=== PATIENT | female | born 1930 | race African-American/Black ===

== ENCOUNTER 2017-07-20 15:30 | Inpatient (IN) | payer OTHER, MEDICARE ==
[~2017-07-20] VITALS: Ht 149.9 cm; Wt 71.6 kg
--- NOTE | 2017-07-20 15:43 | ED CARDIAC/CP/PALPITATIONS ---
History of Present Illness General Chief Complaint: General Adult Stated Complaint: SIB DR ROY FOR FAST HEART RATE Source: patient Exam Limitations: no limitations Vital Signs & Intake/Output Vital Signs & Intake/Output Vital Signs Date Time Temp Pulse Resp B/P B/P Pulse O2 O2 Flow FiO2 Mean Ox Delivery Rate 07/20 1752 160/72 07/20 1751 160/72 07/20 1739 121 167/96 07/20 1739 121 167/96 07/20 1739 121 167/96 07/20 1713 130 167/96 07/20 1711 98.7 109 15 167/96 98 Room Air Room Air 07/20 1555 Room Air Room Air 07/20 1539 130 18 140/100 98 Room Air Allergies Coded Allergies: No Known Allergies (07/20/17) Reconcile Medications Amiloride/Hydrochlorothiazide (Amiloride HCl-Hctz 5-50 MG Tab) 5 MG-50 MG TABLET 1 TAB PO DAILY BLOOD PRESSURE (Reported) Amlodipine Besylate (Norvasc) 5 MG TABLET 1 TAB PO BID HTN (Reported) Benazepril HCl 5 MG TABLET 2 TAB PO DAILY HTN (Reported) Labetalol HCl 200 MG TABLET 1 TAB PO BID HEART HEALTH (Reported) Linagliptin (Tradjenta) 5 MG TABLET 1 TAB PO DAILY DIABETES (Reported) Potassium Chloride 10 MEQ CAPSULE.ER 1 CAP PO DAILY SUPPLEMENT (Reported) Pravastatin Sodium 20 MG TABLET 1 TAB PO DAILY CHOLESTEROL (Reported) Triage Nurses Notes Reviewed? yes Onset: Abrupt Duration: unknown duration Timing: recent history Activities at Onset: none HPI: 87-year-old female comes into the emergency room sent in by her primary care doctor for rapid A. fib. Patient was seen her primary care for a normal routine checkup. She denies any chest pain shortness of breath lightheaded dizziness. Denies any weakness or fatigue. No prior history of this. (Chad Randolph) Past History Travel History Traveled to [place] past 21 day No Medical History Any Pertinent Medical History? see below for history Neurological: NONE EENT: NONE Cardiovascular: hypertension Musculoskeletal: ARTHITIS Endocrine: diabetes Surgical History Surgical History: non-contributory Psychosocial History What is your primary language Afghan Tobacco Use: Never used Family History Hx Contributory? No (Chad Randolph) Review of Systems Review of Systems Constitutional: Reports: no symptoms. EENTM: Reports: no symptoms. Respiratory: Reports: no symptoms. Cardiovascular: Reports: see HPI. GI: Reports: no symptoms. Genitourinary: Reports: no symptoms. Musculoskeletal: Reports: no symptoms. Skin: Reports: no symptoms. Neurological/Psychological: Reports: no symptoms. Hematologic/Endocrine: Reports: no symptoms. Immunologic/Allergic: Reports: no symptoms. All Other Systems: Reviewed and Negative (Chad Randolph) Physical Exam Physical Exam General Appearance: well developed/nourished, alert, awake Head: atraumatic Eyes: Bilateral: normal appearance. Ears, Nose, Throat: normal ENT inspection, hearing grossly normal Neck: normal inspection Respiratory: normal breath sounds, no respiratory distress Cardiovascular: tachycardia, irregularly irregular Extremities: normal inspection, no edema Neurologic/Psych: awake, alert, oriented x 3 Skin: intact, normal color Core Measures ACS in differential dx? Yes CVA/TIA Diagnosis No Sepsis Present: No Sepsis Focused Exam Completed? No (Chad Randolph) Progress Differential Diagnosis: AMI, aortic dissection, atrial fibrillation, V-fib/V- Tach, WPW syndrome Plan of Care: Orders Procedure Date/time Status Regular Diet 07/20 D Active Patient Data 07/20 1808 Active OXYGEN SETUP (GEN) 07/20 1806 Active Saline Lock 07/20 1806 Active Admit to inpatient 07/20 1806 Active Vital Signs 07/20 1806 Active Activity/Ambulation 07/20 1806 Active Code Status 07/20 1806 Active Telemetry/Account Support Associate 07/20 1542 Active THYROID STIMULATING HORMONE 07/20 1542 Complete TROPONIN LEVEL 07/20 1542 Complete PARTIAL THROMBOPLASTIN TIME 07/20 1542 Complete PROTHROMBIN TIME 07/20 1542 Complete COMPREHENSIVE METABOLIC PANEL 07/20 1542 Complete CBC WITHOUT DIFFERENTIAL 07/20 1542 Complete EKG 07/20 1534 Active Current Medications Sig/Concepción Start time Last Medication Dose Stop Time Status Admin Diltiazem HCl 125 MG Q24H 07/20 1800 UNVr (Cardizem DRIP) Sodium Chloride 100 ML (Normal Saline 0.9%) Heparin Sodium 25,000 UNIT Q24H 07/20 1645 UNVr 07/20 (Porcine) 1713 (Heparin) Sodium Chloride 500 ML Laboratory Tests 07/20/17 1649: Anion Gap 17 H, Estimated GFR 52 L, BUN/Creatinine Ratio 19.0, Glucose 379 H, Calcium 10.0, Total Bilirubin 0.6, AST 20, ALT 24, Alkaline Phosphatase 155 H, Troponin I < 0.01, Total Protein 7.9, Albumin 4.2, Globulin 3.7, Albumin/ Globulin Ratio 1.1, TSH 1.080 07/20/17 1552: PT 11.8, INR 1.08, APTT 41 H, CBC w Diff NO MAN DIFF REQ, RBC 4.52, MCV 84.5, MCH 27.1, MCHC 32.1 L, RDW 17.5 H, MPV 9.3, Gran % 71.3, Lymphocytes % 18.4 L , Monocytes % 7.9, Eosinophils % 2.1, Basophils % 0.3, Absolute Granulocytes 6.9 H, Absolute Lymphocytes 1.8, Absolute Monocytes 0.8 H, Absolute Eosinophils 0.2, Absolute Basophils 0 Diagnostic Imaging: Viewed by Me: Radiology Read. Discussed w/RAD: Radiology Read. Radiology Impression: PATIENT: SATINDER AMIN PRESENT AGE: 87 PATIENT ACCOUNT NO: [id number] : [birth year] LOCATION: [facility] ORDERING PHYSICIAN: Chad ALEGRE SERVICE DATE: 07/20/17 EXAM TYPE: RAD - XRY-PORTABLE CHEST XRAY EXAMINATION: XR PORTABLE CHEST CLINICAL INFORMATION: 87- year-old female patient with shortness of breath. Presumptive diagnosis: Atrial fibrillation. COMPARISON: None TECHNIQUE: Portable AP semierect view of the chest was obtained. Time of examination was 3:54 PM FINDINGS: The heart is borderline in size. There is moderate uncoiling and calcification of the thoracic aorta. Pulmonary vascularity is normal. The lungs are symmetrically aerated and clear showing no sign of edema or consolidation. No pleural effusion is seen. A 9 mm nodular opacity projects in the region of the right hilum. This may merely represent a vessel endon. Than a true pulmonary nodule. Confirmation, and when the patient's clinical condition permits, a routine PA and lateral erect views of the chest are recommended. Arthritis involves both shoulders worse in the left than right. IMPRESSION: 1. No CHF. 2. 9 mm nodular density in the region of the right hilum. The differential diagnosis includes a vessel en face versus solitary pulmonary nodule. DICTATED BY: Finesse Cooper MD DATE/ TIME DICTATED:07/20/171615 WELL DIGGER:TOM DATE/TIME TRANSCRIBED: 07/20/171615 CONFIDENTIAL, DO NOT COPY WITHOUT APPROPRIATE AUTHORIZATION. < Electronically signed in Other Vendor System> SIGNED BY: Finesse Cooper MD 07/20/17 1643 Initial ED EKG: rate (128), AFIB (Chad Randolph) Departure Departure Disposition: STILL A PATIENT Condition: Stable Clinical Impression Primary Impression: Rapid atrial fibrillation Secondary Impressions: New onset a-fib Referrals: Colton Roy DO (PCP/Family) Departure Forms: Customer Survey General Discharge Information Admission Note Spoke With: Anselmo Choe MD Documentation of Exam: Documentation of any treatments & extenuating circumstances including Concerns Regarding Discharge (functional status, medication knowledge or non-compliance, living conditions, etc.) that warrant an admission rather than observation: Patient will require cardiac telemetry. IV heparin. Serial troponins. Cardiac consultation. Echocardiogram. (Chad Randolph) PA/AIRCRAFT DELIVERY CHECKER Co-Sign Statement Statement: ED Attending supervision documentation- x I saw and evaluated the patient. I have also reviewed all the pertinent lab results and diagnostic results. I agree with the findings and the plan of care as documented in the PA's/AIRCRAFT DELIVERY CHECKER's documentation. Rapid heart rate at PMD with new onset afib [] I have reviewed the ED Record and agree with the PA's/AIRCRAFT DELIVERY CHECKER's documentation. [] Additions or exceptions (if any) to the PAs/AIRCRAFT DELIVERY CHECKER's note and plan are summarized below: [] (Chio RIVERA,Prabhjot) Critical Care Note Critical Care Note Critical Care Time: 30-74 min (45) (Chad Randolph) ED Attending Observation Initial Observation Note: I have seen and personally examined SATINDER AMIN on 07/20/17 at 1744. I agree with the current emergency department documentation. The disposition (admission or discharge) is uncertain at this time, she needs a period of observation for the following reason(s): The ED Nurse caring for this patient has been personally informed as to what the patient is being observed for. (Chad Randolph)
[2017-07-20 16:06] LABS: ABSOLUTE BASOPHIL COUNT 0 /CUMM (0.0-0.2); ABSOLUTE EOSINOPHIL COUNT 0.2 /CUMM (0.0-0.7); ABSOLUTE GRANULOCYTE CT 6.9 /CUMM (1.4-6.5); ABSOLUTE LYMPH COUNT 1.8 /CUMM (1.2-3.4); ABSOLUTE MONOCYTE COUNT 0.8 /CUMM (0.10-0.60); BASOPHIL % 0.3 % (0.0-2.0); EOSINOPHIL % 2.1 % (0-5); GRANULOCYTE % 71.3 % (42.2-75.2); HEMATOCRIT 38.2 % (37-47); MEAN CORPUSCULAR HGB 27.1 PG (27.0-31.0); MEAN CORPUSCULAR HGB CONC 32.1 G/DL (33.0-37.0); MEAN CORPUSCULAR VOLUME 84.5 FL (81.0-99.0); MEAN PLATELET VOLUME 9.3 FL (7.4-10.4); PLATELET COUNT 323 /CUMM (130-400); RBC DISTRIBUTION WIDTH 17.5 % (11.5-14.5); RED BLOOD CELL CT 4.52 /CUMM (4.20-5.40); WHITE BLOOD CELL COUNT 9.7 /CUMM (4.8-10.8)
[2017-07-20] MEDS ORDERED: AMILORIDE HCL-1 EACH PO (16:08)
[2017-07-20] MEDS ORDERED: NORVASC5 M1 PO (16:08)
[2017-07-20] MEDS ORDERED: BENAZEPRIL HCL5 MG PO (16:09)
[2017-07-20] MEDS ORDERED: LABETALOL HCL200 M1 PO (16:10)
[2017-07-20] MEDS ORDERED: POTASSIUM CHLO10 ME3 PO (16:10)
[2017-07-20] MEDS ORDERED: PRAVASTATIN SOD20 M2 PO (16:11)
[2017-07-20] MEDS ORDERED: TRADJENTA5 M1 PO (16:12)
[2017-07-20 16:28] LABS: PT 11.8 SEC (9.4-12.5); PTT 41 SEC (25-37)
--- NOTE | 2017-07-20 16:43 | RADIOLOGY REPORT ---
EXAMINATION: XR PORTABLE CHEST CLINICAL INFORMATION: 87-year-old female patient with shortness of breath. Presumptive diagnosis: Atrial fibrillation. COMPARISON: None TECHNIQUE: Portable AP semierect view of the chest was obtained. Time of examination was 3:54 PM FINDINGS: The heart is borderline in size. There is moderate uncoiling and calcification of the thoracic aorta. Pulmonary vascularity is normal. The lungs are symmetrically aerated and clear showing no sign of edema or consolidation. No pleural effusion is seen. A 9 mm nodular opacity projects in the region of the right hilum. This may merely represent a vessel endon. Than a true pulmonary nodule. Confirmation, and when the patient's clinical condition permits, a routine PA and lateral erect views of the chest are recommended. Arthritis involves both shoulders worse in the left than right. IMPRESSION: 1. No CHF. 2. 9 mm nodular density in the region of the right hilum. The differential diagnosis includes a vessel en face versus solitary pulmonary nodule.
--- NOTE | 2017-07-20 18:37 | History & Physical ---
RonalCooper 07/20/17 1836: General Information and HPI MD Statement: I have seen and personally examined SATINDER AMIN and documented this H&P. The patient is a 87 year old F who presented with a patient stated chief complaint of sent to ED by her primary care physician for A. fib with rapid ventricular response []. Source of Information: patient, family Exam Limitations: no limitations History of Present Illness: 87 YO F non smoker with PMH HTN, DM, pulmonary hypertension and osteoarthritis sent to ED by her primary care physician after he found her in A. fib with rapid ventricular response this afternoon. According to patient she went to see her primary care physician this afternoon for routine physical examination. The primary care physician did the EKG in his office and found the patient in A. fib with rapid ventricular response. She was asymptomatic. She denied any chest pain, palpitation, nausea, vomiting, lightheadedness, tiredness, chills, fever, abdominal pain, diarrhea, constipation, short of breath, sweating and dysuria. Patient reported that she is taking care of her health by herself and taking her medication regularly by herself. She also endorsed that she never been admitted to hospital due to cardiac problem in the past. She is seeing her primary care physician regularly. She never checked her blood sugar or blood pressure at home but she is compliant to her medications. Patient reported blurry vision for couple of weeks. Last echocardiogram was done in 2009 that showed ejection fraction 60% with diastolic dysfunction. Right ventricular systolic pressure 51 mmHg. ED course: Vitals: Temperature 98.7, pulse 1:30, respiratory rate 18, blood pressure 140/ 100, oxygen saturation 98% on room air Labs: WBC count 9.7, hemoglobin 12.3, hematocrit 38.2, platelet count 323, sodium 137, potassium 4.0, BUN 19, creatinine 1.0, anion gap 17, BUN/creatinine ratio 19.0, glucose 379, calcium 10.0 In ED patient was given two pushes of 5 mg Cardizem and 5 mg amlodipine by mouth. Patient also received labetalol 200 mg by mouth in ED once. Patient was started on Cardizem drip and also heparin drip in ED. Allergies/Medications Allergies: Coded Allergies: No Known Allergies (07/20/17) Home Med list Amiloride/Hydrochlorothiazide (Amiloride HCl-Hctz 5-50 MG Tab) 5 MG-50 MG TABLET 1 TAB PO DAILY BLOOD PRESSURE (Reported) Amlodipine Besylate (Norvasc) 5 MG TABLET 1 TAB PO BID HTN (Reported) Benazepril HCl 5 MG TABLET 2 TAB PO DAILY HTN (Reported) Labetalol HCl 200 MG TABLET 1 TAB PO BID HEART HEALTH (Reported) Linagliptin (Tradjenta) 5 MG TABLET 1 TAB PO DAILY DIABETES (Reported) Potassium Chloride 10 MEQ CAPSULE.ER 1 CAP PO DAILY SUPPLEMENT (Reported) Pravastatin Sodium 20 MG TABLET 1 TAB PO DAILY CHOLESTEROL (Reported) Past History Travel History Traveled to [place] past 21 day No Medical History Neurological: NONE EENT: NONE Cardiovascular: hypertension Musculoskeletal: ARTHITIS Endocrine: diabetes Surgical History Surgical History: non-contributory Review of Systems Review of Systems Constitutional: Reports: no symptoms. EENTM: Reports: blurred vision. Cardiovascular: Denies: chest pain, palpitations. Respiratory: Denies: short of breath. GI: Reports: no symptoms. Genitourinary: Reports: no symptoms. Musculoskeletal: Reports: no symptoms. Neurological/Psychological: Reports: no symptoms. Exam & Diagnostic Data Last 24 Hrs of Vital Signs/I&O Vital Signs Date Time Temp Pulse Resp B/P B/P Pulse O2 O2 Flow FiO2 Mean Ox Delivery Rate 07/20 1752 160/72 07/20 1751 160/72 07/20 1739 121 167/96 07/20 1739 121 167/96 07/20 1739 121 167/96 07/20 1713 130 167/96 07/20 1711 98.7 109 15 167/96 98 Room Air Room Air 07/20 1555 Room Air Room Air 07/20 1539 130 18 140/100 98 Room Air Intake & Output 07/20 1600 07/20 0800 07/20 0000 Intake Total 0 Output Total Balance 0 Intake, Oral 0 Patient 154 lb Weight Weight Reported by Patient Measurement Method Physical Exam General Appearance Alert, Oriented X3, Cooperative, No Acute Distress Skin No Rashes Skin Temp/Moisture Exam: Warm/Dry Sepsis Skin Exam (color): Normal for Ethnicity HEENT Atraumatic, PERRLA, EOMI Neck Supple Cardiovascular Normal S1, Normal S2 Lungs Clear to Auscultation Abdomen Soft, No Tenderness Neurological Normal Speech, Strength at 5/5 X4 Ext, Normal Tone, Sensation Intact Extremities No Edema Last 24 Hrs of Labs/Guy: Laboratory Tests 07/20/17 1649: Anion Gap 17 H, Estimated GFR 52 L, BUN/Creatinine Ratio 19.0, Glucose 379 H, Calcium 10.0, Total Bilirubin 0.6, AST 20, ALT 24, Alkaline Phosphatase 155 H, Troponin I < 0.01, Total Protein 7.9, Albumin 4.2, Globulin 3.7, Albumin/ Globulin Ratio 1.1, TSH 1.080 07/20/17 1552: PT 11.8, INR 1.08, APTT 41 H, CBC w Diff NO MAN DIFF REQ, RBC 4.52, MCV 84.5, MCH 27.1, MCHC 32.1 L, RDW 17.5 H, MPV 9.3, Gran % 71.3, Lymphocytes % 18.4 L , Monocytes % 7.9, Eosinophils % 2.1, Basophils % 0.3, Absolute Granulocytes 6.9 H, Absolute Lymphocytes 1.8, Absolute Monocytes 0.8 H, Absolute Eosinophils 0.2, Absolute Basophils 0 Assessment/Plan Assessment: 87 YO F non smoker with PMH HTN, DM, moderate pulmonary hypertension and osteoarthritis sent to ED by her primary care physician after he found her in A. fib with rapid ventricular response this afternoon. We will admit the patient to telemetry floor to treat for new onset of A. fib with rapid ventricular response. A. fib with RVR: -Continue Cardizem drip at the rate of 5 mL per hour. Target heart rate is less than 110. -Patient's CHADS-VASC score is 4. Patient needs anticoagulation considering her risk of stroke in the setting of A. fib. -Continue with IV heparin for anticoagulation in the setting of A. fib. -Serial Trop and EKG to rule out any ischemic cardiac injury. -TSH to rule out hyperthyroidism -Cardiology consult -Echocardiogram in a.m. Uncontrolled hypertension: -Came with uncontrolled HTN. She never checked her blood pressure at home. -Continue labetalol -Hold her amlodipine as she already on Cardizem. -Continue benazepril History of hyperlipidemia: -Continue pravastatin Uncontrolled DM: -Came with hyperglycemia with anion gap that was resolved. -Accu-Cheks -HbA1c -Insulin NovoLog according to sliding scale Lung nodule: -9mm right lung nodule found on chest x-ray. -Outpatient follow up for further work up in future. DVT Prophylaxis: Mechanical and patient is already on IV heparin Code Status: Full code. As Ranked By This Provider Problem List: 1. Rapid atrial fibrillation 2. Uncontrolled hypertension Core Measures/Misc (01/07) Acute Coronary Syndrome ACS Diagnosis: No Congestive Heart Failure Congestive Heart Failure Diagnosis No Cerebrovascular Accident CVA/TIA Diagnosis: No VTE (View Protocol) VTE Risk Factors Age>40 No Mechanical VTE Prophylaxis d/t N/A MechProphylax Ordered No VTE Pharm Prophylaxis d/t NA PharmProphylax ordered Sepsis (View protocol) Sepsis Present: No Ervin Luke MD,Trevor 07/20/172044: Resident Review Statement Resident Statement: examined this patient, discussed with college intern, agreed with college intern, discussed with family, reviewed EMR data (avail) Other Findings: 87-year-old female with past medical history significant for non-insulin- dependent diabetes mellitus, hypertension on 3 antihypertensive medications, and hyperlipidemia, brought to emergency department after PCP found patient in A. fib with heart rate of 120. Patient does not have any previous history of atrial fibrillation. She was totally asymptomatic at the time and the EKG was done. She is also currently asymptomatic. She denied any chest pain, dyspnea on exertion, fatigue, dizziness or palpitations. Vitals in emergency department, patient afebrile, initially tachycardic with maximum heart rate of 130, no tachypnea, systolic blood pressure in 160s and diastolic blood pressure in 90s, oxygen saturation of 98% on room air. EKG in emergency department showed irregularly irregular rhythm, no discernable P waves , no axis deviation, QTC 438 Labs significant for no leukocytosis, no anemia, platelet count of 323, high anion gap of 17, carbon dioxide of 19, BUN 19 and creatinine 1, hyperglycemia 379, alkaline phosphatase 155, UA pending Chest x-ray showed no cardiomegaly, and 9 mm nodular density in the region of right hilum. Patient was found to be in atrial fibrillation with RVR in emergency department and was given 2 pushes of IV Cardizem 5 mg and later started on IV Cardizem drip , patient was also started on IV heparin. Patient is currently being admitted for the management of following problems New Onset Atrial fibrillation with RVR Most likely cause uncontrolled HTN ? ACS (Negative Troponins and No ST changes on EKG) VS CHF ( No baseline Echo and BNP ) vs No Hyperthyroidism. - Admit to Telemetry - Vitals Q shift - Repeat EKG - Check and Follow PT/INR, PTT - Adjust Cardizem drip and had just the heart rate to 80-110 - Anitcoagulate with IV Heparin Drip, chads vasc score 4, given that she is a female with uncontrolled hypertension, age more than 75 - Monitor HR and Rhythm - Echo ordered to rule out possibility of thrombus and LVH for hypertension, patient had a last echo in 2009 showed ejection -TSH to rule out Hypertthyroidism Uncontrolled hypertension Patient has past medical history significant for uncontrolled hypertension and she is currently in 3 antihypertensive medications including Amiloride HCl-Hctz 5-50 MG, Amlodipine Besylate (Norvasc) 5 MG TABLET, Benazepril HCl 5 MG TABLET 2 TAB PO DAILY, and Labetalol HCl 200 MG TABLET 1 TAB PO BID. we don't know patient's baseline blood pressure and therefore cautiously drop or numbers. Patient does not meet the LVH criteria on EKG. We will obtain an echocardiogram History of diabetes mellitus uncontrolled on oral hypoglycemic agents Patient was admitted with uncontrolled hyperglycemia. She had increased anion gap which rapidly corrected. Accu-Cheks were obtained every 4 hours. Patient was given a bolus of normal saline and started on 100 mL of normal saline per hour. Positive urinary ketone. With obtain serum ketone levels. Patient was given long-acting and short-acting insulin. DVT prophylaxis Patient is on IV heparin for DVT prophylaxis Code status Patient is full code Diet Patient is on diabetic diet Saroj Soliz MD 07/20/17 2111: Attending MD Review Statement Attending Statement Attending MD Statement: examined this patient, discuss w/resident/PA/INDIAN BLANKET WEAVER, agreed w/resident/PA/INDIAN BLANKET WEAVER, discussed with family, reviewed EMR data (avail) Attending Assessment/Plan: Mrs. Amin is a 87-year-old female, active female who lives at home by herself (daughters help with daily chores as she does not drive), has not been admitted in the hospital for the past several years, has a history of hypertension, non- insulin-dependent diabetes mellitus (HbA1C last year was 6.3), pulmonary hypertension, no known history of coronary artery disease or atrial fibrillation , presents with complaints of palpitations going on for the past 1 day. She presented to her primary care physician and they found the patient was in atrial fibrillation with rapid ventricular response and was sent to the ED. Currently denies any specific symptoms of chest pain shortness of breath lightheadedness. Symptoms of palpitations are better compared to when she came in. Denies leg swelling, cough, recent infection. On examination blood pressure 166/93 heart rate of 123 afebrile and respiratory rate of 15, breathing comfortably on room air. Physical exam General Appearance Alert, Oriented X3, Cooperative, No Acute Distress Skin No Rashes HEENT Atraumatic, PERRLA, EOMI Neck Supple Cardiovascular S1, S2 tachycardic, irregular Lungs Clear to Auscultation Abdomen Soft, No Tenderness Neurological No focal neurological deficits Extremities No Edema Assessment and Plan 1. New onset atrial fibrillation with [id number] score of at least 4-5 2. Hyperglycemia with elevated anion gap - resolving 3. Uncontrolled Hypertension 4. Nodule on Chest Xray Admit to Telemetry service Initiate the patient on Cardizem infusion Continue with the heparin infusion initiated in the ER Obtain echocardiogram. Cardiology consulted Repeat basic electrolyte panel, initiate the patient on Levemir 7 units twice a day along with sliding scale. Hold home Linagliptin. Initiate IVF @ 100 cc an hour. Obtain serum ketones Carbohydrate controlled diet Continue with home medications - hold diuretics Will need outpatient follow-up for the 9 mm nodule seen on Chest X ray DVT px - On Heparin for Anticoagulation
[2017-07-20 23:38] VITALS: BP 152/72
[2017-07-21 01:12] LABS: PTT > 120 SEC (25-37)
[2017-07-21 01:30] VITALS: BP 126/68
[2017-07-21 06:56] VITALS: BP 118/72
[2017-07-21 09:42] LABS: ABSOLUTE BASOPHIL COUNT 0 /CUMM (0.0-0.2); ABSOLUTE EOSINOPHIL COUNT 0.2 /CUMM (0.0-0.7); ABSOLUTE GRANULOCYTE CT 6.4 /CUMM (1.4-6.5); ABSOLUTE LYMPH COUNT 2.1 /CUMM (1.2-3.4); ABSOLUTE MONOCYTE COUNT 0.9 /CUMM (0.10-0.60); BASOPHIL % 0.4 % (0.0-2.0); EOSINOPHIL % 2.6 % (0-5); GRANULOCYTE % 66.5 % (42.2-75.2); HEMATOCRIT 35.2 % (37-47); MEAN CORPUSCULAR HGB 27.4 PG (27.0-31.0); MEAN CORPUSCULAR HGB CONC 32.6 G/DL (33.0-37.0); MEAN CORPUSCULAR VOLUME 84.1 FL (81.0-99.0); MEAN PLATELET VOLUME 8.9 FL (7.4-10.4); PLATELET COUNT 257 /CUMM (130-400); RBC DISTRIBUTION WIDTH 17.7 % (11.5-14.5); RED BLOOD CELL CT 4.19 /CUMM (4.20-5.40); WHITE BLOOD CELL COUNT 9.6 /CUMM (4.8-10.8)
[2017-07-21 10:13] LABS: PTT > 120 SEC (25-37)
--- NOTE | 2017-07-21 10:55 | PN- Att Addend ---
Attending Addendum Attending Brief Note Patient seen and examined. She feels well. She was sent in from Dr. Roy's office where she went for her well visit for an insurance form and was found to be in new A. fib. On exam her blood pressure is 118/72, pulse is 71, afebrile and breathing at 16-18. Off note her pulse rate was higher in the ER and now she is on IV Cardizem. Lungs are clear to auscultation, heart is S1-S2 irregular, abdomen is soft, no edema She is an 87-year-old with underlying hypertension and diabetes and an echo in 2009 which showed Pulmonary hypertension. Her outpatient medications include Amiloride/hydrochlorothiazide , labetalol, and SP inhibitor and linagliptin. Right now given her chads score and new onset A. fib of unclear duration, we have her on IV heparin and she's on IV Cardizem for rate control with the by mouth labetalol. My feeling is that we can probably wean off the Cardizem and switch to by mouth Cardizem or increase the dose of labetalol- will defer to cardiology for the same. She had uncontrolled hyperglycemia and we have her on low-dose Levemir with an insulin sliding scale right now and given the sugars will follow closely and restart the linagliptin. We'll stop the IV fluids, encourage by mouth intake, encourage ambulation and follow closely.
--- NOTE | 2017-07-21 12:20 | PN- Housestaff ---
Subjective Follow-up For: afib htn diabetes lung nodule Tele-Events Since Last Visit: a. flutter HR 109-130 PVC Subjective: No acute events overnight. No CP, sob or palpitations. Review of Systems Constitutional: Reports: see HPI. Objective Last 24 Hrs of Vital Signs/I&O Vital Signs Date Time Temp Pulse Resp B/P B/P Pulse O2 O2 Flow FiO2 Mean Ox Delivery Rate 07/21 2238 97.7 74 18 118/70 96 Room Air 07/21 2158 75 176/70 07/21 2158 75 146/70 07/21 1601 98 128/70 07/21 1600 Room Air 07/21 1501 98.3 60 20 112/64 92 Nasal 1.0L Cannula 07/21 1500 76 138/60 07/21 0945 100 144/60 07/21 0945 100 144/80 07/21 0656 98.0 71 20 118/72 96 Room Air 07/21 0130 98 126/68 Intake & Output 07/22 0800 07/22 0000 07/21 1600 Intake Total 533 705 Output Total 400 Balance 533 305 Intake, IV 53 225 Intake, Oral 480 480 Number 1 Bowel Movements Output, Urine 400 Patient 158 lb Weight Weight Bed scale Measurement Method Physical Exam General Appearance: Alert, Oriented X3, Cooperative, No Acute Distress Cardiovascular: tachy irregularly irregualr Lungs: Clear to Auscultation, Normal Air Movement Abdomen: Normal Bowel Sounds, Soft, No Tenderness Extremities: trace LLE edema, b/l LE dry skin Current Medications: Current Medications Sig/Concepción Start time Last Medication Dose Route Stop Time Status Admin Apixaban 5 MG BID 07/21 1451 AC 07/22 PO 0000 Dextrose/Sodium 1,000 ML Q13H 07/21 0615 DC 07/21 Chloride IV 0630 Diltiazem HCl 30 MG Q6H 07/21 2200 AC 07/21 PO 2158 Diltiazem HCl 30 MG Q6H 07/21 1445 DC 07/21 PO 1601 Diltiazem HCl 125 MG Q24H 07/20 1800 DC 07/21 Sodium Chloride 100 ML IV 1721 Heparin Sodium 25,000 UNIT Q24H 07/20 1645 DC 07/20 (Porcine) IV 1713 Sodium Chloride 500 ML Insulin Aspart 0 TIDAC/HS 07/21 1700 AC 07/21 SC 1721 Insulin Aspart 0 TIDAC 07/21 0800 DC SC Insulin Detemir 5 UNITS BID 07/21 2200 AC 07/21 SC 2158 Insulin Detemir 7 UNITS BID 07/20 2200 DC 07/21 SC 0816 Labetalol HCl 200 MG BID 07/21 1000 AC 07/21 PO 2158 Lisinopril 10 MG DAILY 07/20 2359 AC 07/21 PO 0945 Melatonin 5 MG AT BEDTIME 07/20 2200 AC 07/21 PO 2158 Potassium Chloride 40 MEQ ONCE ONE 07/21 1500 DC 07/21 PO 07/21 1501 1601 Potassium Chloride 10 MEQ DAILY 07/21 1000 AC 07/21 PO 0945 Pravastatin Sodium 20 MG 1700 07/21 1700 AC 07/21 PO 1601 Sodium Chloride 1,000 ML Q10H 07/20 2000 DC 07/21 IV 07/21 0559 0300 Last 24 Hrs of Lab/Guy Results Last 24 Hrs of Labs/Mics: Laboratory Tests 07/21/17 1730: APTT Cancelled 07/21/17 0900: Anion Gap 15, Estimated GFR > 60, BUN/Creatinine Ratio 17.1, APTT > 120 *H, CBC w Diff NO MAN DIFF REQ, RBC 4.19 L, MCV 84.1, MCH 27.4, MCHC 32.6 L, RDW 17.7 H, MPV 8.9, Gran % 66.5, Lymphocytes % 21.6, Monocytes % 8.9, Eosinophils % 2.6, Basophils % 0.4, Absolute Granulocytes 6.4, Absolute Lymphocytes 2.1, Absolute Monocytes 0.9 H, Absolute Eosinophils 0.2, Absolute Basophils 0 Assessment/Plan Assessment: 87 YO F non smoker with PMH HTN, DM, moderate pulmonary hypertension and osteoarthritis sent to ED by her primary care physician after he found her in A. fib with rapid ventricular response this afternoon. We will admit the patient to telemetry floor to treat for new onset of A. fib with rapid ventricular response. A. fib with RVR: -starte po cardizem 30mgq6. taper off drip -Patient's CHADS-VASC score is 4. stopped heparin drip and started eliiquis 5mg BID -f/u ehoc cardiogram -Serial Trop and EKG to rule out any ischemic cardiac injury. -TSH normal -Cardiology consult -Echocardiogram results Uncontrolled hypertension: -Came with uncontrolled HTN. She never checked her blood pressure at home. -Continue labetalol -Hold her amlodipine as she already on Cardizem. -Continue benazepril History of hyperlipidemia: -Continue pravastatin Uncontrolled DM: -Came with hyperglycemia with anion gap that was resolved. -Accu-Cheks -HbA1c -Insulin NovoLog according to sliding scale Lung nodule: -9mm right lung nodule found on chest x-ray. -Outpatient follow up for further work up in future. DVT Prophylaxis: Mechanical and patient is already on IV heparin Code Status: Full code. Problem List: 1. New onset a-fib Pain Ratin Pain Location: none Pain Goal: Pain 4 or less Pain Plan: pathway Tomorrow's Labs & Rationales: bep
--- NOTE | 2017-07-21 12:30 | Cons- Endocrinology ---
General Information and HPI Consulting Request Date of Consult: 07/21/17 Requested By: medical team Reason for Consult: management of uncontrolled diabetes Source of Information: patient, family, old records Exam Limitations: no limitations History of Present Illness: 87 y/o female, hx of diabetes type 2 with HbA1c of 6.3% in 10/2016, was on Tradjenta 5 mg daily, was admitted for new onset atrial fibrillation. Her glucose level was > 300 last night. She received Novolog 10 units and her FSG was down to 108. Then she was put on D5 1/2 NS at 75 ml/hour. Her repeat FSG was 166 this morning. IVF was discontinued. As per patient's family, patient hasn't been compliance with diet and doesn't check glucose level at home. Allergies/Medications Allergies: Coded Allergies: No Known Allergies (07/20/17) Home Med List: Amiloride/Hydrochlorothiazide (Amiloride HCl-Hctz 5-50 MG Tab) 5 MG-50 MG TABLET 1 TAB PO DAILY BLOOD PRESSURE (Reported) Amlodipine Besylate (Norvasc) 5 MG TABLET 1 TAB PO BID HTN (Reported) Benazepril HCl 5 MG TABLET 2 TAB PO DAILY HTN (Reported) Labetalol HCl 200 MG TABLET 1 TAB PO BID HEART HEALTH (Reported) Linagliptin (Tradjenta) 5 MG TABLET 1 TAB PO DAILY DIABETES (Reported) Potassium Chloride 10 MEQ CAPSULE.ER 1 CAP PO DAILY SUPPLEMENT (Reported) Pravastatin Sodium 20 MG TABLET 1 TAB PO DAILY CHOLESTEROL (Reported) Past History Travel History Traveled to [place] past 21 day No Medical History Blood Transfusion Hx: No Neurological: NONE EENT: NONE Cardiovascular: hypertension Respiratory: NONE Gastrointestinal: NONE Hepatic: NONE Renal: NONE Musculoskeletal: ARTHITIS Psychiatric: NONE Endocrine: diabetes Blood Disorders: NONE Cancer(s): NONE 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 Home Services at Home: None Smoking Status: Never Smoked Exam & Diagnostic Data Last 24 Hrs of Vital Signs/I&O Vital Signs Date Time Temp Pulse Resp B/P B/P Pulse O2 O2 Flow FiO2 Mean Ox Delivery Rate 07/21 0945 100 144/60 07/21 0945 100 144/80 07/21 0656 98.0 71 20 118/72 96 Room Air 07/21 0130 98 126/68 07/21 0004 108 152/90 07/20 2338 98.9 115 20 152/72 96 Room Air 07/20 1952 98.7 95 18 169/86 98 Room Air 07/20 1843 123 166/93 07/20 1752 160/72 07/20 1751 160/72 07/20 1739 121 167/96 07/20 1739 121 167/96 07/20 1739 121 167/96 07/20 1713 130 167/96 07/20 1711 98.7 109 15 167/96 98 Room Air Room Air 07/20 1555 Room Air Room Air 07/20 1539 130 18 140/100 98 Room Air Intake & Output 07/21 1600 07/21 0800 07/21 0000 Intake Total 1500 825 Output Total 750 Balance 750 825 Intake, IV 1250 575 Intake, Oral 250 250 Output, Urine 750 Patient 150 lb Weight Weight Bed scale Measurement Method Physical Exam General Appearance: no apparent distress Neck: normal inspection Respiratory: lungs clear Cardiovascular: tachycardia, irregularly irregular Gastrointestinal: soft Extremities: no edema Labs/Guy Results: Laboratory Tests 07/21 07/21 0900 0000 Chemistry Sodium (137 - 145 mmol/L) 142 Potassium (3.5 - 5.1 mmol/L) 3.2 L Chloride (98 - 107 mmol/L) 105 Carbon Dioxide (22 - 30 mmol/L) 22 Anion Gap (5 - 16) 15 BUN (7 - 17 mg/dL) 12 Creatinine (0.5 - 1.0 mg/dL) 0.7 Estimated GFR (>60 ml/min) > 60 BUN/Creatinine Ratio (7 - 25 %) 17.1 Troponin I (< 0.11 ng/ml) 0.02 Coagulation APTT (25 - 37 SEC) > 120 *H > 120 *H Hematology CBC w Diff NO MAN DIFF REQ WBC (4.8 - 10.8 /CUMM) 9.6 RBC (4.20 - 5.40 /CUMM) 4.19 L Hgb (12.0 - 16.0 G/DL) 11.5 L Hct (37 - 47 %) 35.2 L MCV (81.0 - 99.0 FL) 84.1 MCH (27.0 - 31.0 PG) 27.4 MCHC (33.0 - 37.0 G/DL) 32.6 L RDW (11.5 - 14.5 %) 17.7 H Plt Count (130 - 400 /CUMM) 257 MPV (7.4 - 10.4 FL) 8.9 Gran % (42.2 - 75.2 %) 66.5 Lymphocytes % (20.5 - 51.1 %) 21.6 Monocytes % (1.7 - 9.3 %) 8.9 Eosinophils % (0 - 5 %) 2.6 Basophils % (0.0 - 2.0 %) 0.4 Absolute Granulocytes (1.4 - 6.5 /CUMM) 6.4 Absolute Lymphocytes (1.2 - 3.4 /CUMM) 2.1 Absolute Monocytes (0.10 - 0.60 /CUMM) 0.9 H Absolute Eosinophils (0.0 - 0.7 /CUMM) 0.2 Absolute Basophils (0.0 - 0.2 /CUMM) 0 07/20 07/20 2214 2030 Blood Gas pH (7.35 - 7.45 PH) 7.48 H pCO2 (35 - 45 TORR) 28 L pO2 (80 - 100 TORR) 79 L HCO3 (21 - 28 MEQ/L) 20 L ABG O2 Sat (Measured) (>96.0 %) 96.0 P-50 (Temp Corrected) N Carboxyhemoglobin (1.5 - 5.0 %) 0.4 L O2 Concentration % RA Temperature (97.0 - 100.0 FARH) 98.7 Chemistry Sodium (137 - 145 mmol/L) 139 Potassium (3.5 - 5.1 mmol/L) 3.7 Chloride (98 - 107 mmol/L) 103 Carbon Dioxide (22 - 30 mmol/L) 21 L Anion Gap (5 - 16) 15 BUN (7 - 17 mg/dL) 18 H Creatinine (0.5 - 1.0 mg/dL) 1.1 H Estimated GFR (>60 ml/min) 47 L BUN/Creatinine Ratio (7 - 25 %) 16.4 Lactic Acid (0.7 - 2.1 mmol/L) 2.0 Miscellaneous Phlebotomy Draw Site RIGHT BRACHIAL Toxicology Acetone Level (NEGATIVE) NEGATIVE 07/201 Chemistry Sodium (137 - 145 mmol/L) 137 Potassium (3.5 - 5.1 mmol/L) 4.0 Chloride (98 - 107 mmol/L) 101 Carbon Dioxide (22 - 30 mmol/L) 19 L Anion Gap (5 - 16) 17 H BUN (7 - 17 mg/dL) 19 H Creatinine (0.5 - 1.0 mg/dL) 1.0 Estimated GFR (>60 ml/min) 52 L BUN/Creatinine Ratio (7 - 25 %) 19.0 Glucose (65 - 99 mg/dL) 379 H Hemoglobin A1c (4.2 - 5.8 %) Pending Calcium (8.4 - 10.2 mg/dL) 10.0 Total Bilirubin (0.2 - 1.3 mg/dL) 0.6 AST (14 - 36 U/L) 20 ALT (9 - 52 U/L) 24 Alkaline Phosphatase (<127 U/L) 155 H Troponin I (< 0.11 ng/ml) < 0.01 Total Protein (6.3 - 8.2 g/dL) 7.9 Albumin (3.5 - 5.0 g/dL) 4.2 Globulin (1.9 - 4.2 gm/dL) 3.7 Albumin/Globulin Ratio (1.1 - 2.2 %) 1.1 Triglycerides (<150 mg/dL) 259 H Cholesterol (<200 MG/DL) 192 LDL Cholesterol, Calc (65 - 129 mg/dL) 86 HDL Cholesterol (40 - 60 mg/dL) 55 Cholesterol/HDL Ratio (0.00 - 4.23 %) 3 TSH (0.270 - 4.200 uIU/mL) 1.080 Urines Urine Color (YEL,AMB,STR) YEL Urine Clarity (CLEAR) CLEAR Urine pH (5.0 - 8.0) 6.0 Ur Specific [place] (1.001 - 1.035) 1.020 Urine Protein (NEG,<30 MG/DL) 30 H Urine Ketones (NEG) 15 H Urine Nitrite (NEG) NEG Urine Bilirubin (NEG) NEG Urine Urobilinogen (0.1 - 1.0 EU/dl) 0.2 Ur Leukocyte Esterase (NEG) MOD H Ur Microscopic SEDIMENT EXAMINED Urine RBC (0 - 5 /HPF) 1-3 Urine WBC (0 - 2 /HPF) > 75 H Ur Epithelial Cells (NONE,FEW) FEW Urine Bacteria (NEG/NONE) MANY H Urine Hemoglobin (NEG) TRACE-INTACT Urine Glucose (N MG/DL) >=1000 H 07/20 1552 Coagulation PT (9.4 - 12.5 SEC) 11.8 INR (0.90 - 1.19) 1.08 APTT (25 - 37 SEC) 41 H Hematology CBC w Diff NO MAN DIFF REQ WBC (4.8 - 10.8 /CUMM) 9.7 RBC (4.20 - 5.40 /CUMM) 4.52 Hgb (12.0 - 16.0 G/DL) 12.3 Hct (37 - 47 %) 38.2 MCV (81.0 - 99.0 FL) 84.5 MCH (27.0 - 31.0 PG) 27.1 MCHC (33.0 - 37.0 G/DL) 32.1 L RDW (11.5 - 14.5 %) 17.5 H Plt Count (130 - 400 /CUMM) 323 MPV (7.4 - 10.4 FL) 9.3 Gran % (42.2 - 75.2 %) 71.3 Lymphocytes % (20.5 - 51.1 %) 18.4 L Monocytes % (1.7 - 9.3 %) 7.9 Eosinophils % (0 - 5 %) 2.1 Basophils % (0.0 - 2.0 %) 0.3 Absolute Granulocytes (1.4 - 6.5 /CUMM) 6.9 H Absolute Lymphocytes (1.2 - 3.4 /CUMM) 1.8 Absolute Monocytes (0.10 - 0.60 /CUMM) 0.8 H Absolute Eosinophils (0.0 - 0.7 /CUMM) 0.2 Absolute Basophils (0.0 - 0.2 /CUMM) 0 Assessment/Plan Assessment/Plan 87 y/o female, hx of diabetes type 2 with HbA1c of 6.3% in 10/2016, was on Tradjenta 5 mg daily, was admitted for new onset atrial fibrillation. Her DM hasn't been stable. Plan: 1. nutrition consult/ DM education/ glucometer teaching; 2. decrease Levemir to 5 units twice a day; 3. adjust Novolog coverage before meals and add Novolog coverage at bedtime; detail see the inpatient DM orders; 4. monitor FSGs. will follow. Inpatient Diabetes Orders Before Each Meal: Bolus Insulin: Novolog < 80 mg/dl: no coverage 80-100 mg/dl: no coverage 101-120 mg/dl: no coverage 121-150 mg/dl: no coverage 151-200 mg/dl: 2 units 201-250 mg/dl: 3 units 251-300 mg/dl: 4 units 301-350 mg/dl: 5 units 351-400 mg/dl: 6 units > 400 mg/dl: 8 units Bedtime: Bolus Insulin: Novolog < 80 mg/dl: no coverage 80-100 mg/dl: no coverage 101-120 mg/dl: no coverage 121-150 mg/dl: no coverage 151-200 mg/dl: no coverage 201-250 mg/dl: no coverage 251-300 mg/dl: 2 units 301-350 mg/dl: 3 units 351-400 mg/dl: 4 units > 400 mg/dl: 5 units Consult Acknowledgment - Thank you for your consult request.
--- NOTE | 2017-07-21 12:55 | Cons- Cardiology ---
General Information and HPI Consulting Request Date of Consult: 07/21/17 Requested By: Anselmo Choe MD Reason for Consult: New onset atrial fibrillation Source of Information: patient, family History of Present Illness: This is a pleasant 87-year-old female with a past medical history of hypertension and diabetes who was referred to the emergency room after she was found to be in new onset rapid atrial fibrillation; she presented to her primary care physician for a routine visit and was noted to be in new onset atrial fibrillation; patient denied any associated chest pain, dyspnea, or palpitations. She denies any known history of atrial fibrillation or coronary artery disease. She did report some mild lightheadedness that resolved. She denied any headache, slurring of speech, or syncope. Denied subjective fever. Denied orthopnea or paroxysmal nocturnal dyspnea. Denies any history of major bleeding in the past. Allergies/Medications Allergies: Coded Allergies: No Known Allergies (07/20/17) Home Med List: Amiloride/Hydrochlorothiazide (Amiloride HCl-Hctz 5-50 MG Tab) 5 MG-50 MG TABLET 1 TAB PO DAILY BLOOD PRESSURE (Reported) Amlodipine Besylate (Norvasc) 5 MG TABLET 1 TAB PO BID HTN (Reported) Benazepril HCl 5 MG TABLET 2 TAB PO DAILY HTN (Reported) Labetalol HCl 200 MG TABLET 1 TAB PO BID HEART HEALTH (Reported) Linagliptin (Tradjenta) 5 MG TABLET 1 TAB PO DAILY DIABETES (Reported) Potassium Chloride 10 MEQ CAPSULE.ER 1 CAP PO DAILY SUPPLEMENT (Reported) Pravastatin Sodium 20 MG TABLET 1 TAB PO DAILY CHOLESTEROL (Reported) Current Medications: Current Medications Sig/Concepción Start time Last Medication Dose Route Stop Time Status Admin Amlodipine Besylate 5 MG ONCE ONE 07/20 1730 DC 07/20 PO 07/20 1731 1739 Dextrose/Sodium 1,000 ML Q13H 07/21 0615 DC 07/21 Chloride IV 0630 Diltiazem HCl 0 .STK-MED ONE 07/20 1837 DC IV Diltiazem HCl 125 MG Q24H 07/20 1800 AC 07/20 Sodium Chloride 100 ML IV 1842 Diltiazem HCl 5 MG ONCE ONE 07/20 1730 DC 07/20 IV PUSH 07/20 1731 1739 Diltiazem HCl 0 .STK-MED ONE 07/20 1700 DC .ROUTE Diltiazem HCl 5 MG ONCE ONE 07/20 1615 DC 07/20 IV PUSH 07/20 1616 1713 Heparin Sodium 0 .STK-MED ONE 07/20 1700 DC (Porcine) .ROUTE Heparin Sodium 4,000 UNIT ONCE ONE 07/20 1645 DC 07/20 (Porcine) IV 07/20 1646 1713 Heparin Sodium 25,000 UNIT Q24H 07/20 1645 AC 07/20 (Porcine) IV 1713 Sodium Chloride 500 ML Insulin Aspart 0 TIDAC/HS 07/21 1700 AC 07/21 SC 1237 Insulin Aspart 0 TIDAC/HS 07/21 0800 DC SC Insulin Aspart 0 TIDAC 07/21 0800 DC SC Insulin Aspart 10 UNITS ONCE ONE 07/20 2245 DC 07/20 SC 07/20 2246 2246 Insulin Aspart 0 TIDAC 07/20 1915 DC SC Insulin Aspart Prota 10 UNIT ONCE ONE 07/20 2245 CAN 70%/Aspart 30% SC 07/20 2246 Insulin Detemir 5 UNITS BID 07/21 2200 AC SC Insulin Detemir 7 UNITS BID 07/20 2200 DC 07/21 SC 0816 Labetalol HCl 200 MG BID 07/21 1000 AC 07/21 PO 0945 Labetalol HCl 200 MG ONCE ONE 07/20 1730 DC 07/20 PO 07/20 1731 1739 Lisinopril 10 MG DAILY 07/20 2359 AC 07/21 PO 0945 Melatonin 5 MG AT BEDTIME 07/20 2200 AC 07/21 PO 0004 Potassium Chloride 10 MEQ DAILY 07/21 1000 AC 07/21 PO 0945 Pravastatin Sodium 20 MG 1700 07/21 1700 AC PO Sodium Chloride 1,000 ML BOLUS ONE 07/20 2245 DC 07/20 IV 07/20 2344 2242 Sodium Chloride 1,000 ML Q10H 07/20 2000 DC 07/21 IV 07/21 0559 0300 Review of Systems Review of Systems: Review of systems as per HPI. The remainder of a 10 point review of systems was reviewed and was otherwise negative. 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 Home Services at Home: None Smoking Status: Never Smoked Exam & Diagnostic Data Vital Signs and I&O Vital Signs Date Time Temp Pulse Resp B/P B/P Pulse O2 O2 Flow FiO2 Mean Ox Delivery Rate 07/21 0945 100 144/60 07/21 0945 100 144/80 07/21 0656 98.0 71 20 118/72 96 Room Air 07/21 0130 98 126/68 07/21 0004 108 152/90 07/20 2338 98.9 115 20 152/72 96 Room Air 07/20 1952 98.7 95 18 169/86 98 Room Air 07/20 1843 123 166/93 07/20 1752 160/72 07/20 1751 160/72 07/20 1739 121 167/96 07/20 1739 121 167/96 07/20 1739 121 167/96 07/20 1713 130 167/96 07/20 1711 98.7 109 15 167/96 98 Room Air Room Air 07/20 1555 Room Air Room Air 07/20 1539 130 18 140/100 98 Room Air Intake & Output 07/21 1600 07/21 0800 07/21 0000 07/20 1600 07/20 0800 07/20 0000 Intake Total 1500 825 0 Output Total 750 Balance 750 825 0 Intake, IV 1250 575 Intake, Oral 250 250 0 Output, Urine 750 Patient 150 lb 154 lb Weight Weight Bed scale Reported by Patient Measurement Method Physical Exam: General: no apparent distress. Alert. Eyes: No obvious scleral icterus. HEENT: No jugular venous distention or abnormal jugular venous pulsations. Cardiovascular: Normal intensity S1/S2. 1 out of 6 systolic murmur, irregular Respiratory: Lungs clear to auscultation bilaterally. Abdomen: Soft, nontender with no guarding or rebound tenderness. Musculoskeletal: No clubbing or cyanosis noted, no edema Skin: No obvious rashes or ulcerations. Neurologic: No gross focal deficits noted. Lymph: No gross lymphadenopathy. Labs/Guy Results: Laboratory Tests 07/21 07/21 0900 0000 Chemistry Sodium (137 - 145 mmol/L) 142 Potassium (3.5 - 5.1 mmol/L) 3.2 L Chloride (98 - 107 mmol/L) 105 Carbon Dioxide (22 - 30 mmol/L) 22 Anion Gap (5 - 16) 15 BUN (7 - 17 mg/dL) 12 Creatinine (0.5 - 1.0 mg/dL) 0.7 Estimated GFR (>60 ml/min) > 60 BUN/Creatinine Ratio (7 - 25 %) 17.1 Troponin I (< 0.11 ng/ml) 0.02 Coagulation APTT (25 - 37 SEC) > 120 *H > 120 *H Hematology CBC w Diff NO MAN DIFF REQ WBC (4.8 - 10.8 /CUMM) 9.6 RBC (4.20 - 5.40 /CUMM) 4.19 L Hgb (12.0 - 16.0 G/DL) 11.5 L Hct (37 - 47 %) 35.2 L MCV (81.0 - 99.0 FL) 84.1 MCH (27.0 - 31.0 PG) 27.4 MCHC (33.0 - 37.0 G/DL) 32.6 L RDW (11.5 - 14.5 %) 17.7 H Plt Count (130 - 400 /CUMM) 257 MPV (7.4 - 10.4 FL) 8.9 Gran % (42.2 - 75.2 %) 66.5 Lymphocytes % (20.5 - 51.1 %) 21.6 Monocytes % (1.7 - 9.3 %) 8.9 Eosinophils % (0 - 5 %) 2.6 Basophils % (0.0 - 2.0 %) 0.4 Absolute Granulocytes (1.4 - 6.5 /CUMM) 6.4 Absolute Lymphocytes (1.2 - 3.4 /CUMM) 2.1 Absolute Monocytes (0.10 - 0.60 /CUMM) 0.9 H Absolute Eosinophils (0.0 - 0.7 /CUMM) 0.2 Absolute Basophils (0.0 - 0.2 /CUMM) 0 07/20 07/20 2215 2030 Blood Gas pH (7.35 - 7.45 PH) 7.48 H pCO2 (35 - 45 TORR) 28 L pO2 (80 - 100 TORR) 79 L HCO3 (21 - 28 MEQ/L) 20 L ABG O2 Sat (Measured) (>96.0 %) 96.0 P-50 (Temp Corrected) N Carboxyhemoglobin (1.5 - 5.0 %) 0.4 L O2 Concentration % RA Temperature (97.0 - 100.0 FARH) 98.7 Chemistry Sodium (137 - 145 mmol/L) 139 Potassium (3.5 - 5.1 mmol/L) 3.7 Chloride (98 - 107 mmol/L) 103 Carbon Dioxide (22 - 30 mmol/L) 21 L Anion Gap (5 - 16) 15 BUN (7 - 17 mg/dL) 18 H Creatinine (0.5 - 1.0 mg/dL) 1.1 H Estimated GFR (>60 ml/min) 47 L BUN/Creatinine Ratio (7 - 25 %) 16.4 Lactic Acid (0.7 - 2.1 mmol/L) 2.0 Miscellaneous Phlebotomy Draw Site RIGHT BRACHIAL Toxicology Acetone Level (NEGATIVE) NEGATIVE 07/20 164 Chemistry Sodium (137 - 145 mmol/L) 137 Potassium (3.5 - 5.1 mmol/L) 4.0 Chloride (98 - 107 mmol/L) 101 Carbon Dioxide (22 - 30 mmol/L) 19 L Anion Gap (5 - 16) 17 H BUN (7 - 17 mg/dL) 19 H Creatinine (0.5 - 1.0 mg/dL) 1.0 Estimated GFR (>60 ml/min) 52 L BUN/Creatinine Ratio (7 - 25 %) 19.0 Glucose (65 - 99 mg/dL) 379 H Hemoglobin A1c (4.2 - 5.8 %) Pending Calcium (8.4 - 10.2 mg/dL) 10.0 Total Bilirubin (0.2 - 1.3 mg/dL) 0.6 AST (14 - 36 U/L) 20 ALT (9 - 52 U/L) 24 Alkaline Phosphatase (<127 U/L) 155 H Troponin I (< 0.11 ng/ml) < 0.01 Total Protein (6.3 - 8.2 g/dL) 7.9 Albumin (3.5 - 5.0 g/dL) 4.2 Globulin (1.9 - 4.2 gm/dL) 3.7 Albumin/Globulin Ratio (1.1 - 2.2 %) 1.1 Triglycerides (<150 mg/dL) 259 H Cholesterol (<200 MG/DL) 192 LDL Cholesterol, Calc (65 - 129 mg/dL) 86 HDL Cholesterol (40 - 60 mg/dL) 55 Cholesterol/HDL Ratio (0.00 - 4.23 %) 3 TSH (0.270 - 4.200 uIU/mL) 1.080 Urines Urine Color (YEL,AMB,STR) YEL Urine Clarity (CLEAR) CLEAR Urine pH (5.0 - 8.0) 6.0 Ur Specific [place] (1.001 - 1.035) 1.020 Urine Protein (NEG,<30 MG/DL) 30 H Urine Ketones (NEG) 15 H Urine Nitrite (NEG) NEG Urine Bilirubin (NEG) NEG Urine Urobilinogen (0.1 - 1.0 EU/dl) 0.2 Ur Leukocyte Esterase (NEG) MOD H Ur Microscopic SEDIMENT EXAMINED Urine RBC (0 - 5 /HPF) 1-3 Urine WBC (0 - 2 /HPF) > 75 H Ur Epithelial Cells (NONE,FEW) FEW Urine Bacteria (NEG/NONE) MANY H Urine Hemoglobin (NEG) TRACE-INTACT Urine Glucose (N MG/DL) >=1000 H 07/20 1552 Coagulation PT (9.4 - 12.5 SEC) 11.8 INR (0.90 - 1.19) 1.08 APTT (25 - 37 SEC) 41 H Hematology CBC w Diff NO MAN DIFF REQ WBC (4.8 - 10.8 /CUMM) 9.7 RBC (4.20 - 5.40 /CUMM) 4.52 Hgb (12.0 - 16.0 G/DL) 12.3 Hct (37 - 47 %) 38.2 MCV (81.0 - 99.0 FL) 84.5 MCH (27.0 - 31.0 PG) 27.1 MCHC (33.0 - 37.0 G/DL) 32.1 L RDW (11.5 - 14.5 %) 17.5 H Plt Count (130 - 400 /CUMM) 323 MPV (7.4 - 10.4 FL) 9.3 Gran % (42.2 - 75.2 %) 71.3 Lymphocytes % (20.5 - 51.1 %) 18.4 L Monocytes % (1.7 - 9.3 %) 7.9 Eosinophils % (0 - 5 %) 2.1 Basophils % (0.0 - 2.0 %) 0.3 Absolute Granulocytes (1.4 - 6.5 /CUMM) 6.9 H Absolute Lymphocytes (1.2 - 3.4 /CUMM) 1.8 Absolute Monocytes (0.10 - 0.60 /CUMM) 0.8 H Absolute Eosinophils (0.0 - 0.7 /CUMM) 0.2 Absolute Basophils (0.0 - 0.2 /CUMM) 0 Diagnostic Data EKG Results Tracing was personally reviewed it shows atrial fibrillation at 94 bpm with nonspecific T-wave abnormality, normal R-wave progression CXR Results 1. No CHF. 2. 9 mm nodular density in the region of the right hilum. The differential diagnosis includes a vessel en face versus solitary pulmonary nodule. Other Results Telemetry tracings are personally reviewed her atrial fibrillation with grossly controlled ventricular response rate Assessment/Plan Assessment/Plan 1. New onset atrial fibrillation, asymptomatic 2. Tachycardia 3. History of hypertension 4. Diabetes mellitus The patient presents with new onset atrial fibrillation with rapid ventricular response rate. She is hemodynamically stable and currently asymptomatic. She does have a significantly elevated chads vasc score and after extensive discussion with the patient and her family they would like to initiate her on anticoagulation with a direct oral anticoagulant; risks versus benefits extensively reviewed; we will plan to initiate her on Eliquis 5 mg p.o. twice daily. We will also plan to start on oral Cardizem and wean off the Cardizem drip. Echocardiogram is pending. Endocrinology input reviewed. Blood pressure is stable. Continue on telemetry for now. Gume Schwarz MD [facility] Consult Acknowledgment - Thank you for your consult request.
[2017-07-21 15:00] VITALS: BP 138/60
[2017-07-21 15:01] VITALS: BP 112/64
--- NOTE | 2017-07-21 19:01 | ECHOCARDIOGRAM REPORT ---
SATINDER AMIN Age: 87 : 1930 Gender: F Exam Date: 07/21/2017 09:57 Exam Location: [facility] Ht (in): 59 Wt (lb): 150 BSA: 1.71 BP: 118 / 72 Ordering Physician: Trevor Fermin MD Referring Physician: Efraín Schwarz M.D. Technologist: Anay Narvaez Room Number: 179-01 Indications: AFIB/FLUTTER Rhythm: Atrial fibrillation Technical Quality: Fair FINDINGS Left Ventricle Left ventricular cavity size normal. No obvious regional wall motion abnormalities. Left ventricular wall thickness mildly increased. Left ventricular ejection fraction is estimated at 55 %. Right Ventricle Normal right ventricular size and function. Right Atrium Mild right atrial dilatation. Left Atrium Mild left atrial dilatation. Mitral Valve Structurally normal mitral valve. No mitral stenosis. Trace to mild mitral regurgitation. Aortic Valve No aortic stenosis. Trileaflet aortic valve. Tricuspid Valve Structurally normal tricuspid valve. Moderate tricuspid regurgitation. Right ventricular systolic pressure estimated to be elevated at > 75 mmHg. Pulmonic Valve Pulmonic valve not well visualized, grossly normal. Pericardium No pericardial effusion. Great Vessels Normal size aortic root. CONCLUSIONS Left ventricular cavity size normal. No obvious regional wall motion abnormalities. Left ventricular wall thickness mildly increased. Left ventricular ejection fraction is estimated at 55 %. Normal right ventricular size and function. Mild right atrial dilatation. Mild left atrial dilatation. Moderate tricuspid regurgitation. Right ventricular systolic pressure estimated to be elevated at > 75 mmHg. Efraín Schwarz M.D. (Electronically Signed) Final Date: 21 July 2017 19:01 MEASUREMENTS (Male / Female) Normal Values 2D ECHO LV Diastolic Diameter PLAX 3.5 cm 4.2 - 5.9 / 3.9 - 5.3 cm LV Systolic Diameter PLAX 2.5 cm 2.1 - 4.0 cm LV Fractional Shortening PLAX 28.6 % 25 - 46 % LV Ejection Fraction 2D Teich 56.1 % IVS Diastolic Thickness 1.4 cm LVPW Diastolic Thickness 1.4 cm LV Relative Wall Thickness 0.8 LVOT Diameter 1.6 cm LA Systolic Diameter LX 4.4 cm 3.0 - 4.0 / 2.7 - 3.8 cm LA Volume 37.0 cm 18 - 58 / 22 - 52 cm Ascending Aorta Diameter 2.9 cm DOPPLER AV Peak Velocity 126.0 cm/s AV Peak Gradient 6.4 mmHg AV Mean Velocity 91.5 cm/s AV Mean Gradient 4.0 mmHg AV Velocity Time Integral 24.8 cm LVOT Peak Velocity 89.9 cm/s LVOT Peak Gradient 3.2 mmHg LVOT Mean Velocity 59.6 cm/s LVOT Mean Gradient 2.0 mmHg LVOT Velocity Time Integral 14.4 cm LVOT Stroke Volume 29.0 cm AV Area Cont Eq vti 1.2 cm AV Area Cont Eq pk 1.4 cm TR Peak Velocity 410.0 cm/s TR Peak Gradient 67.2 mmHg Right Atrial Pressure 10.0 mmHg Pulmonary Artery Systolic Pressu 77.2 mmHg Right Ventricular Systolic Press 77.2 mmHg PV Peak Velocity 103.0 cm/s PV Peak Gradient 4.2 mmHg PV Mean Velocity 78.6 cm/s PV Mean Gradient 3.0 mmHg PV Velocity Time Integral 21.9 cm
[2017-07-21 22:39] VITALS: BP 118/70
[2017-07-22 07:19] VITALS: BP 106/70
[2017-07-22 09:19] VITALS: BP 106/70
--- NOTE | 2017-07-22 09:37 | PN- Housestaff ---
Feli Lara 07/22/17 0935: Subjective Follow-up For: afib htn diabetes lung nodule Tele-Events Since Last Visit: NSR 60-70s Subjective: No overnight event. patient acknowledged that her heart rate was back to NSR overnight. She denied CP/SOB/Headache/Ab pain. Had been eating/drinking well. No other specific complaint. Review of Systems Constitutional: Reports: see HPI. Objective Last 24 Hrs of Vital Signs/I&O Vital Signs Date Time Temp Pulse Resp B/P B/P Pulse O2 O2 Flow FiO2 Mean Ox Delivery Rate 07/22 09 64 106/70 07/22 0919 64 106/70 07/22 0918 625 106/70 07/22 0719 98.2 62 12 106/70 95 Room Air 07/22 0408 70 16 130/68 07/22 0000 96 Room Air 07/21 2239 97.7 74 18 118/70 96 Room Air 07/21 2158 75 176/70 07/21 2158 75 146/70 07/21 1601 98 128/70 07/21 1600 Room Air 07/21 1501 98.3 60 20 112/64 92 Nasal 1.0L Cannula 07/21 1500 76 138/60 07/21 0945 100 144/60 07/21 0945 100 144/80 Intake & Output 07/22 1600 07/22 0800 07/22 0000 Intake Total 100 533 Output Total Balance 100 533 Intake, IV 53 Intake, Oral 100 480 Number 1 Bowel Movements Patient 71.611 kg Weight Weight Bed scale Measurement Method Physical Exam General Appearance: Alert, Oriented X3, Cooperative, No Acute Distress Cardiovascular: Regular Rate Lungs: Clear to Auscultation, Normal Air Movement Abdomen: Normal Bowel Sounds, Soft, No Tenderness Neurological: Normal Speech Extremities: No Edema, Normal Pulses Current Medications: Current Medications Sig/Concepción Start time Last Medication Dose Route Stop Time Status Admin Apixaban 5 MG BID 07/21 1451 AC 07/22 PO 0919 Dextrose/Sodium 1,000 ML Q13H 07/21 0615 DC 07/21 Chloride IV 0630 Diltiazem HCl 30 MG Q6H 07/21 2200 AC 07/22 PO 0919 Diltiazem HCl 30 MG Q6H 07/21 1445 DC 07/21 PO 1601 Diltiazem HCl 125 MG Q24H 07/20 1800 DC 07/21 Sodium Chloride 100 ML IV 1721 Heparin Sodium 25,000 UNIT Q24H 07/20 1645 DC 07/20 (Porcine) IV 1713 Sodium Chloride 500 ML Insulin Aspart 0 TIDAC/HS 07/21 1700 AC 07/22 SC 0900 Insulin Aspart 0 TIDAC 07/21 0800 DC SC Insulin Detemir 5 UNITS BID 07/21 2200 AC 07/22 SC 0921 Insulin Detemir 7 UNITS BID 07/20 2200 DC 07/21 SC 0816 Labetalol HCl 200 MG BID 07/21 1000 AC 07/22 PO 0919 Lisinopril 10 MG DAILY 07/20 2359 AC 07/22 PO 0918 Melatonin 5 MG AT BEDTIME 07/20 2200 AC 07/21 PO 2158 Potassium Chloride 40 MEQ ONCE ONE 07/21 1500 DC 07/21 PO 07/21 1501 1601 Potassium Chloride 10 MEQ DAILY 07/21 1000 AC 07/22 PO 0919 Pravastatin Sodium 20 MG 1700 07/21 1700 AC 07/21 PO 1601 Last 24 Hrs of Lab/Guy Results Last 24 Hrs of Labs/Mics: Laboratory Tests 07/22/17 0615: Anion Gap 12, Estimated GFR 59 L, BUN/Creatinine Ratio 15.6, Magnesium 1.4 L 07/21/17 1730: APTT Cancelled Assessment/Plan Assessment: 87 YO F non smoker with PMH HTN, DM, moderate pulmonary hypertension and osteoarthritis sent to ED by her primary care physician after he found her in A. fib with rapid ventricular response this afternoon. We will admit the patient to telemetry floor to treat for new onset of A. fib with rapid ventricular response. A. fib with RVR: -starte po cardizem 30mgq6. Will discharge on Cardizem 120mg ER qd. -Patient's CHADS-VASC score is 4. stopped heparin drip and started eliiquis 5mg BID, will continue on discharge. -Echo revealed EF 55%, moderate TR. -Serial Trop and EKGx2 negative for ischemic cardiac injury. -TSH normal -Cardiology consult appreciated Uncontrolled hypertension: -Came with uncontrolled HTN. She never checked her blood pressure at home. -Continue labetalol -Hold her amlodipine as she already on Cardizem. Will hold after discharge. -Continue benazepril History of hyperlipidemia: -Continue pravastatin Uncontrolled DM: -Came with hyperglycemia with anion gap that was resolved. -Accu-Cheks -HbA1c -Insulin NovoLog according to sliding scale Lung nodule: -9mm right lung nodule found on chest x-ray. -Outpatient follow up for further work up in future. DVT Prophylaxis: Mechanical and patient is already on IV heparin Code Status: Full code. Problem List: 1. Uncontrolled hypertension 2. New onset a-fib Pain Ratin Pain Location: NA Pain Goal: Remain pain free Pain Plan: see AP Tomorrow's Labs & Rationales: CAROL Arreguin MD,Denita 07/22/17 1206: Attending MD Review Statement Attending Statement Attending MD Statement: examined this patient, discuss w/resident/PA/MEDICAL SCIENTIFIC LIAISON, agreed w/resident/PA/MEDICAL SCIENTIFIC LIAISON, discussed with family, reviewed EMR data (avail), discussed with nursing, reviewed images Attending Assessment/Plan: This is an 87-year-old with underlying hypertension and diabetes and an echo in 2009 which showed Pulmonary hypertension. Her outpatient medications include Amiloride/hydrochlorothiazide , labetalol, and SP inhibitor and linagliptin. She is here with new onset atrial fibrillation that was found incidentally at her primary care physician's office and a mild degree of hyperglycemia. At this point she is on the by mouth Cardizem and she's tolerating it fairly well. I did speak to the air conditioning specialist and the patient. Given that her blood pressure is on the low side we are going to send her out on Cardizem CD 120 mg a day but we are going to stop the Norvasc, stop the diuretic and decrease the dose of the labetalol while keeping the SP inhibitor. I also discussed with Dr. staples the timber treatment plant operator and we can send her out on the linagliptin and and she is going to follow-up with endocrinology. I spoke to her and her daughter for quite a while and they understand the new medications of the Cardizem in the Eliquis. They understand that the Eliquis is being given for stroke risk and they understand the bleeding risks with Eliquis. They also understand the need for close follow-up with Efraín Schwarz MD in his office, Dr. Roy her primary care physician and Dr. staples her timber treatment plant operator. Total time with patient [id number] and coordinating discharge was 33 minutes. Patient and daughter also understand need for follow-up of CT chest with radiographic surveillance of the nodule.
[2017-07-22] MEDS ORDERED: ELIQUIS5 M1 PO ×2 (10:39→11:23)
[2017-07-22] MEDS ORDERED: CARDIZEM30 M1 PO (10:39)
--- NOTE | 2017-07-22 10:40 | Patient Discharge Instructions ---
Discharge Instructions General Discharge Information Special Instructions: - Please continue taking Eliquis at prescribed regimen and follow up with your professional programmer analyst for refill/dose adjustment. Please visit ER for any active bleeding from mouth/nose/rectum, and only stop Eliquis under physician's guidance. - Please follow up with your professional programmer analyst Dr. Schwarz within 1 weeks of discharge. - Please follow up with your primary care physician within 1-2 weeks of discharge. Inform your primary care physician of this admission to [facility]. - Continue your current medications per discharge instructions. - Please watch for these problems: Fever, Chills, Nausea, Vomiting, Shortness of Breath, Productive Cough, Chest Pain/Discomfort, Abdominal Pain, Active Bleeding or Bloody urine/stool. Diet Continue normal diet: Yes Recommended Diet: Heart Healthy Activity Full Activity/No Limits: Yes Acute Coronary Syndrome Inclusion Criteria At DC or during hospital stay patient has or had the following: ACS DIAGNOSIS No Discharge Core Measures Meds if any: Prescribed or Continued at Discharge Meds if any: NOT Prescribed or Continued at Discharge Congestive Heart Failure Inclusion Criteria At DC or during hospital stay patient has or had the following: CHF DIAGNOSIS No Discharge Core Measures Meds if any: Prescribed or Continued at Discharge Meds if any: NOT Prescribed or Continued at Discharge Cerebrovascular accident Inclusion Criteria At DC or during hospital stay patient has or had the following: CVA/TIA Diagnosis No Discharge Core Measures Meds if any: Prescribed or Continued at Discharge Meds if any: NOT Prescribed or Continued at Discharge Venous thromboembolism Inclusion Criteria VTE Diagnosis No VTE Type NONE VTE Confirmed by (Test) NONE Discharge Core Measures - Per Current guidelines, there needs to be overlap - treatment for the first 5 days of Warfarin therapy. - If discharged on Warfarin prior to 5 days of - overlap therapy, the patient will need to be - assessed for post discharge needs including - *Post discharge parental anticoagulation - *Warfarin and/or parental anticoagulation education - *Follow up date to check INR post discharge At least 5 days overlap therapy as Inpatient No Meds if any: Prescribed or Continued at Discharge Note: Overlap Therapy is Warfarin and Anticoagulant Meds if any: NOT Prescribed or Continued at Discharge
[2017-07-22] MEDS ORDERED: LABETALOL HCL100 M1 PO ×2 (10:43→11:23)
[2017-07-22] MEDS ORDERED: CARDIZEM CD120 M2 PO ×2 (10:43→11:23)
== END 2017-07-22 12:30 | DRG 310 ==
LOC: ERH 15:30 → ERHI 18:06 → 1NO 18:06 → ENRESERV 18:19 → ENTRNSPT 20:32 → EDTRNSPTSTS 20:44 → EDTRNSPT 20:44 → 1NO 20:49 → CMPTRNSPT 21:03 → 1NO 21:18 → ENPENDDIS 07-22 10:55 → 1NO 07-22 12:30
PROVIDERS: Internal Medicine; Physician Assistant Medical; Student in an Organized Health Care Education/Training Program
DX: I48.91 Unspecified atrial fibrillation (principal); E11.65 Type 2 diabetes mellitus with hyperglycemia; I27.20 Pulmonary hypertension, unspecified; M19.90 Unspecified osteoarthritis, unspecified site; E78.5 Hyperlipidemia, unspecified; R91.1 Solitary pulmonary nodule; Z79.84 Long term (current) use of oral hypoglycemic drugs
CPT/HCPCS: 1NSP; 36592; 71045; 81001; 82436; 93005; 93010; 93306; 96374; 96375; 99291; J1644; J7042

== ENCOUNTER 2017-11-17 09:49 | Inpatient (IN) | payer OTHER, MEDICARE ==
[~2017-11-17] VITALS: Ht 147.3 cm; Wt 66.7 kg
[~2017-11-17 09:49] MED LIST: AMILORIDE HCL-1 EACH PO; BENAZEPRIL HCL5 MG PO; CARDIZEM CD120 M2 PO; CARDIZEM30 M1 PO; ELIQUIS5 M1 PO; LABETALOL HCL100 M1 PO; LABETALOL HCL200 M1 PO; NORVASC5 M1 PO; POTASSIUM CHLO10 ME3 PO; PRAVASTATIN SOD20 M2 PO; TRADJENTA5 M1 PO
--- NOTE | 2017-11-17 10:00 | ED GENERAL ADULT ---
History of Present Illness General Chief Complaint: General Adult Stated Complaint: RT FOOT PAIN "ITS THE GOUTCH" Source: patient Exam Limitations: no limitations Vital Signs & Intake/Output Vital Signs & Intake/Output Vital Signs Date Time Temp Pulse Resp B/P B/P Pulse O2 O2 Flow FiO2 Mean Ox Delivery Rate 11/17 1719 98.0 80 18 110/55 97 Room Air 11/17 1642 98.1 72 28 200/80 07 1447 98.1 72 28 200/80 98 Room Air 11/17 1250 98.0 87 16 150/82 97 Room Air 11/17 1010 96 Room Air 11/17 0955 97.8 117 16 190/110 98 Room Air Allergies Coded Allergies: No Known Allergies (07/20/17) Reconcile Medications Acetaminophen 500 MG TABLET 2 TAB PO PRN PAIN (Reported) Apixaban (Eliquis) 5 MG TABLET 5 MG PO BID A-fib . Benazepril HCl 10 MG TABLET 1 TAB PO BID BP (Reported) Diltiazem HCl (Cardizem Cd) 120 MG CAP.ER.24H 1 TAB PO DAILY A-fib Rate control . Labetalol HCl 100 MG TABLET 1 TAB PO BID HTN control . Linagliptin (Tradjenta) 5 MG TABLET 1 TAB PO DAILY DIABETES (Reported) Pravastatin Sodium 20 MG TABLET 1 TAB PO DAILY CHOLESTEROL (Reported) Triage Note: 87F REPORTS WORSENING RIGHT KNEE AND FOOT PAIN X3 DAYS SHE RELATES TO A SUBJECTIVE GOUT FLARE UP. USUALLY AMBULATES W A WALKER AND UNABLE TO STAND OR WALK TODAY. HAS BEEN TAKING TYLENOL W MINIMAL RELIEF, LAST DOSE YESTERDAY 7:30PM. ACCUCHECK 352. HYPERTENSIVE ON ARRIVAL. DENIES VISION CHANGES, HEADACHES. DENIES TRAUMA/FALLS AND DENIES CP/SOB/PALPITATIONS Triage Nurses Notes Reviewed? yes Onset: Abrupt Duration: day(s): Timing: recent history Injury Environment: home Severity: moderate, severe No Modifying Factors: none HPI: 87-year-old female comes into the emergency room with complaints of right knee pain and swelling as well as right foot pain. Patient reports that she has a history of gout and it feels the same. She was came in by ambulance. She's been unable to ambulate at home. She denies any headache chest pain shortness of breath fever chills vomiting or weakness or confusion. Her blood pressure was elevated en route. She is on blood pressure medications at home. (Chad Randolph) Past History Travel History Traveled to [place] past 21 day No Medical History Any Pertinent Medical History? see below for history Neurological: NONE EENT: NONE Cardiovascular: hypertension Respiratory: NONE Gastrointestinal: NONE Hepatic: NONE Renal: NONE Musculoskeletal: ARTHITIS Psychiatric: NONE Endocrine: diabetes Blood Disorders: NONE Cancer(s): NONE STONE REPAIRER/Reproductive: NONE History of MRSA: No History of VRE: No History of CDIFF: No Influenza Vaccine: 02/21/17 Surgical History Surgical History: non-contributory Psychosocial History Who do you live with Patient/Self Services at Home None What is your primary language [place] Tobacco Use: Never used Family History Hx Contributory? No (Chad Randolph) Review of Systems Review of Systems Constitutional: Reports: no symptoms. EENTM: Reports: no symptoms. Respiratory: Reports: no symptoms. Cardiovascular: Reports: see HPI. GI: Reports: no symptoms. Genitourinary: Reports: no symptoms. Musculoskeletal: Reports: see HPI. Skin: Reports: no symptoms. Neurological/Psychological: Reports: no symptoms. Hematologic/Endocrine: Reports: no symptoms. Immunologic/Allergic: Reports: no symptoms. All Other Systems: Reviewed and Negative (Chad Randolph) Physical Exam Physical Exam General Appearance: well developed/nourished, alert, awake Head: atraumatic Eyes: Bilateral: normal appearance. Ears, Nose, Throat: normal ENT inspection, hearing grossly normal Neck: normal inspection Respiratory: normal breath sounds, no respiratory distress Cardiovascular: tachycardia, irregularly irregular Back: normal inspection Extremities: normal inspection Neurologic/Psych: no motor/sensory deficits, awake, alert, oriented x 3, normal mood/affect Skin: intact, normal color Core Measures ACS in differential dx? No CVA/TIA Diagnosis: No Sepsis Present: No Sepsis Focused Exam Completed? No (Chad Randolph) Progress Differential Diagnoses I considered the following diagnoses in my evaluation of the patient: Gout, DVT , Nation's cyst, hypertensive urgency, GA, CVA, Plan of Care: Orders Procedure Date/time Status Consistent Carbohydrate 3 11/17 L Complete Consistent Carbohydrate 3 11/17 D Active TROPONIN LEVEL 11/17 2200 Active EKG 11/[address] in observation 11/17 1711 Active Patient Data 11/17 1644 Active Add-on Test (ER Only) 11/17 1630 Active CULTURE,BODY FLUID 11/17 1630 Active SYNOVIAL FLUID CELL COUNT 11/17 1630 Active CRYSTAL ANALYSIS 11/17 1630 Active BODY FLUID TOTAL PROTEIN 11/17 1630 Active BODY FLUID GLUCOSE 11/17 1630 Active TROPONIN LEVEL 11/17 1600 Complete EKG 11/17 1600 Active BLOOD CULTURE 11/17 1354 Active URINALYSIS 11/17 1340 Active PT Evaluate & Treat 11/17 1337 Active Pathway - chart 11/17 1337 Active House Staff 11/17 1337 Active Patient Data 11/17 1337 Active Code Status 11/17 1337 Active ED Holding Orders 11/17 1318 Active Code Status 11/17 1318 Complete Intake & Output 11/17 1007 Active URIC ACID 11/17 1005 Complete TROPONIN LEVEL 11/17 1000 Complete COMPREHENSIVE METABOLIC PANEL 11/17 1000 Complete CBC WITHOUT DIFFERENTIAL 11/17 1000 Complete EKG 11/17 1000 Active FingerStick- Glucose 11/17 0955 Active Lab Add-on Test 11/17 UNK Active VTE Mechanical Prophylaxis 11/17 UNK Active Vital Signs 11/17 UNK Active Telemetry/Online Media Buyer 11/17 UNK Active FingerStick- Glucose 11/17 UNK Active Activity/Ambulation 11/17 UNK Active Current Medications Sig/[place] Start time Last Medication Dose Stop Time Status Admin Apixaban 5 MG BID 11/18 1000 UNVr (Eliquis) Diltiazem HCl 120 MG DAILY 11/18 0900 AC (Cardizem CD) Lisinopril 20 MG DAILY 11/18 0900 AC (Prinivil) Lactobacillus 1 CAP BID 11/17 2100 CANr Acidophilus (Probiotic) Pravastatin Sodium 20 MG DAILY@1700 11/17 1700 AC 11/17 (Pravachol) 1642 Labetalol HCl 100 MG BID 11/17 1407 AC 11/17 (Trandate) 1642 Acetaminophen 650 MG Q6P PRN 11/17 1345 AC (Tylenol) Insulin Aspart 0 TIDAC 11/17 1345 AC 11/17 (NovoLOG) 1525 Laboratory Tests 11/17/17 1615: Fluid WBC 8400 H, Fld Mesothelial Cells 3, Fld Total RBCs Counted 46825 H 11/17/17 1615: Lymphocytes 2, % Normal PMNs 95, Ref Lab Test Result Pending, Fluid Glucose 270, Fluid Total Protein Pending, Lyme Disease Antibody Cancelled 11/17/17 1600: Troponin I 0.12 *H 11/17/17 1005: Anion Gap 15, Estimated GFR > 60, BUN/Creatinine Ratio 21.3, Glucose 332 H, Uric Acid 5.9, Calcium 9.7, Total Bilirubin 0.8, AST 19, ALT 27, Alkaline Phosphatase 155 H, Troponin I 0.12 *H, Total Protein 7.8, Albumin 4.0, Globulin 3.8, Albumin/Globulin Ratio 1.1, CBC w Diff MAN DIFF ORDERED, RBC 4.77, MCV 85.7 , MCH 27.7, MCHC 32.3 L, RDW 12.9, MPV 8.7, Gran % 83.4 H, Lymphocytes % 8.9 L, Monocytes % 7.3, Eosinophils % 0.2, Basophils % 0.2, Absolute Granulocytes 13.1 H, Absolute Lymphocytes 1.4, Absolute Monocytes 1.1 H, Absolute Eosinophils 0, Absolute Basophils 0, Platelet Estimate ADEQUATE, Normocytic RBCs VERIFIED, Normochromic RBCs VERIFIED Microbiology 11/17 1707 STOOL: Clostridium difficile Toxin A & B - CAN Cancelled: Cancelled via OE: Per MD Decision 11/17 1615 BODY FLUID: Body Fluid Culture - RECD 11/17 1615 BODY FLUID: Gram Stain - RECD 11/17 1615 BLOOD: Blood Culture - RECD 11/17 1600 BLOOD: Blood Culture - RECD Diagnostic Imaging: Viewed by Me: Radiology Read, Ultrasound. Discussed w/RAD: Radiology Read, Ultrasound. Radiology Impression: PATIENT: SATINDER AMIN PRESENT AGE: 87 PATIENT ACCOUNT NO: [id number] : [birth year] LOCATION: [facility] ORDERING PHYSICIAN: Chad ALEGRE SERVICE DATE: 11/17/17- EXAM TYPE: RAD - XRY- KNEE COMPLETE RIGHT EXAMINATION: XR KNEE, RIGHT CLINICAL INFORMATION: Swelling right knee/foot COMPARISON: None TECHNIQUE: Four views of the right knee. FINDINGS: No fracture or dislocation seen. There is ovoid suprapatellar soft tissue density. There is tricompartmental degenerative arthrosis with moderate lateral, mild medial compartment joint space narrowing and marginal osteophytosis. There is medial and lateral compartment chondrocalcinosis. There are well-corticated intra-articular bodies seen anteriorly and posteriorly on the lateral view. IMPRESSION: No fracture or dislocation seen. There is ovoid suprapatellar soft tissue density which may represent a large joint effusion although bursitis or hematoma or other fluid collections could give this appearance as well. Medial and lateral compartment degenerative arthrosis with chondrocalcinosis and intra-articular bodies. DICTATED BY: Bulmaro Peoples MD DATE/TIME DICTATED:11/17/171052 WELL CONTROL INSTRUCTOR:TOM DATE/TIME TRANSCRIBED:11/17/171052 CONFIDENTIAL, DO NOT COPY WITHOUT APPROPRIATE AUTHORIZATION. <Electronically signed in Other Vendor System> SIGNED BY: Bulmaro Peoples MD 11/17/17 1100, PATIENT: SATINDER AMIN PRESENT AGE: 87 PATIENT ACCOUNT NO: [id number] : [birth year] LOCATION: [facility] ORDERING PHYSICIAN: Chad ALEGRE SERVICE DATE: 11/17/17 EXAM TYPE : RAD - XRY-FOOT COMPLETE, R EXAMINATION: XR FOOT, RIGHT CLINICAL INFORMATION: Swelling right knee pain/foot [sic] COMPARISON: None TECHNIQUE: AP, lateral, and oblique views of the right foot. FINDINGS: There is moderate to severe degenerative arthrosis of the first metatarsophalangeal joint with joint space narrowing and sclerosis. There is a well-corticated erosion of the medial aspect of the first metatarsal head with adjacent ill-defined soft tissue density. Gout can have this appearance. There is also a well-corticated erosion of the lateral aspect of the fifth metatarsal head with adjacent ill-defined soft tissue density. There is degenerative arthrosis of the first and second metatarsal cuneiform articulations. There is interphalangeal degenerative arthrosis particularly of the fifth digit. There is calcification of the posterior plantar fascia. No fracture or dislocation seen. IMPRESSION: No fracture or dislocation seen. Multifocal degenerative changes as described above. Well-corticated erosions with adjacent soft tissue densities involving the first and fifth metatarsal heads, suggestive of gout. DICTATED BY: Bulmaro Peoples MD DATE/TIME DICTATED:11/17/171034 WELL CONTROL INSTRUCTOR:TOM DATE/TIME TRANSCRIBED:1034 CONFIDENTIAL, DO NOT COPY WITHOUT APPROPRIATE AUTHORIZATION. < Electronically signed in Other Vendor System> SIGNED BY: Bulmaro Peoples MD 11/17/17 1043, PATIENT: SATINDER AMIN PRESENT AGE: 87 PATIENT ACCOUNT NO: [id number] : [birth year] LOCATION: [facility] ORDERING PHYSICIAN: Chad ALEGRE SERVICE DATE: 11/17/17 EXAM TYPE: US - US -UNILATERAL VENOUS DOPPLER EXAMINATION: US TRIPLEX LOWER EXTREMITY, RIGHT. CLINICAL INFORMATION: Edema. COMPARISON: None TECHNIQUE: Color-flow triplex imaging with spectral analysis and compression Doppler were performed on the lower extremity. FINDINGS: Respiratory variation, normal compression and augmented flow are noted throughout the lower extremity. The visualized common femoral vein, superficial femoral vein, profunda femoral vein, popliteal vein and midcalf peroneal and posterior tibial venous segments show no evidence of deep venous thrombosis. There is no Nation's cyst. IMPRESSION: No evidence of deep venous thrombosis involving right lower extremity. No Nation's cyst seen. DICTATED BY: Fab Sorto MD DATE/TIME DICTATED:11/17/171148 WELL CONTROL INSTRUCTOR :TOM DATE/TIME TRANSCRIBED:11/17/171148 CONFIDENTIAL, DO NOT COPY WITHOUT APPROPRIATE AUTHORIZATION. <Electronically signed in Other Vendor System> SIGNED BY: Fab Sorto MD 11/17/17 1159 Initial ED EKG: normal sinus rhythm, rate (96), nonspecific ST T wave chg (Chad Randolph) Departure Departure Disposition: STILL A PATIENT Condition: Stable Clinical Impression Primary Impression: Troponin level elevated Secondary Impressions: Gait instability, Gouty arthritis, Hypertension Referrals: Colton Roy DO (PCP/Family) Departure Forms: Customer Survey General Discharge Information Admission Note Spoke With: Renuka Ba MD Documentation of Exam: Documentation of any treatments & extenuating circumstances including Concerns Regarding Discharge (functional status, medication knowledge or non-compliance, living conditions, etc.) that warrant an admission rather than observation: Patient will require cardiac telemetry. Serial troponins. Cardiac consultation. PT consultation. Case management consultation. Pain control. Blood pressure management. Medically not safe for discharge. (Chad Randolph) PA/QUALITY REVIEW TRAINER Co-Sign Statement Statement: ED Attending supervision documentation- [x] I saw and evaluated the patient. I have also reviewed all the pertinent lab results and diagnostic results. I agree with the findings and the plan of care as documented in the PA's/QUALITY REVIEW TRAINER's documentation. [] I have reviewed the ED Record and agree with the PA's/QUALITY REVIEW TRAINER's documentation. [] Additions or exceptions (if any) to the PAs/QUALITY REVIEW TRAINER's note and plan are summarized below: [] 87-year-old female comes in for gouty arthritis of the right knee. Plan will be for treatment. She is hypertensive and had slight troponin elevation which is likely due to demand. No acute signs of ACS. The patient will be admitted for further evaluation workup. (Makayla RIVERA,[facility]) Critical Care Note Critical Care Note Critical Care Time: non-applicable (Chad Randolph)
[2017-11-17] MEDS ORDERED: BENAZEPRIL HCL10 MG PO (10:16)
[2017-11-17] MEDS ORDERED: ACETAMINOPHEN500 M4 PO (10:17)
[2017-11-17 10:22] LABS: ABSOLUTE BASOPHIL COUNT 0 /CUMM (0.0-0.2); ABSOLUTE EOSINOPHIL COUNT 0 /CUMM (0.0-0.7); ABSOLUTE GRANULOCYTE CT 13.1 /CUMM (1.4-6.5); ABSOLUTE LYMPH COUNT 1.4 /CUMM (1.2-3.4); ABSOLUTE MONOCYTE COUNT 1.1 /CUMM (0.10-0.60); BASOPHIL % 0.2 % (0.0-2.0); EOSINOPHIL % 0.2 % (0-5); GRANULOCYTE % 83.4 % (42.2-75.2); HEMATOCRIT 40.9 % (37-47); MEAN CORPUSCULAR HGB 27.7 PG (27.0-31.0); MEAN CORPUSCULAR HGB CONC 32.3 G/DL (33.0-37.0); MEAN CORPUSCULAR VOLUME 85.7 FL (81.0-99.0); MEAN PLATELET VOLUME 8.7 FL (7.4-10.4); PLATELET COUNT 329 /CUMM (130-400); RBC DISTRIBUTION WIDTH 12.9 % (11.5-14.5); RED BLOOD CELL CT 4.77 /CUMM (4.20-5.40); WHITE BLOOD CELL COUNT 15.7 /CUMM (4.8-10.8)
--- NOTE | 2017-11-17 10:43 | RADIOLOGY REPORT ---
EXAMINATION: XR FOOT, RIGHT CLINICAL INFORMATION: Swelling right knee pain/foot [sic] COMPARISON: None TECHNIQUE: AP, lateral, and oblique views of the right foot. FINDINGS: There is moderate to severe degenerative arthrosis of the first metatarsophalangeal joint with joint space narrowing and sclerosis. There is a well-corticated erosion of the medial aspect of the first metatarsal head with adjacent ill-defined soft tissue density. Gout can have this appearance. There is also a well-corticated erosion of the lateral aspect of the fifth metatarsal head with adjacent ill-defined soft tissue density. There is degenerative arthrosis of the first and second metatarsal cuneiform articulations. There is interphalangeal degenerative arthrosis particularly of the fifth digit. There is calcification of the posterior plantar fascia. No fracture or dislocation seen. IMPRESSION: No fracture or dislocation seen. Multifocal degenerative changes as described above. Well-corticated erosions with adjacent soft tissue densities involving the first and fifth metatarsal heads, suggestive of gout.
--- NOTE | 2017-11-17 11:00 | RADIOLOGY REPORT ---
EXAMINATION: XR KNEE, RIGHT CLINICAL INFORMATION: Swelling right knee/foot COMPARISON: None TECHNIQUE: Four views of the right knee. FINDINGS: No fracture or dislocation seen. There is ovoid suprapatellar soft tissue density. There is tricompartmental degenerative arthrosis with moderate lateral, mild medial compartment joint space narrowing and marginal osteophytosis. There is medial and lateral compartment chondrocalcinosis. There are well-corticated intra-articular bodies seen anteriorly and posteriorly on the lateral view. IMPRESSION: No fracture or dislocation seen. There is ovoid suprapatellar soft tissue density which may represent a large joint effusion although bursitis or hematoma or other fluid collections could give this appearance as well. Medial and lateral compartment degenerative arthrosis with chondrocalcinosis and intra-articular bodies.
--- NOTE | 2017-11-17 11:55 | ULTRASOUND REPORT ---
EXAMINATION: US TRIPLEX LOWER EXTREMITY, RIGHT. CLINICAL INFORMATION: Edema. COMPARISON: None TECHNIQUE: Color-flow triplex imaging with spectral analysis and compression Doppler were performed on the lower extremity. FINDINGS: Respiratory variation, normal compression and augmented flow are noted throughout the lower extremity. The visualized common femoral vein, superficial femoral vein, profunda femoral vein, popliteal vein and midcalf peroneal and posterior tibial venous segments show no evidence of deep venous thrombosis. There is no Nation's cyst. IMPRESSION: No evidence of deep venous thrombosis involving right lower extremity. No Nation's cyst seen.
--- NOTE | 2017-11-17 12:19 | RADIOLOGY REPORT ---
EXAMINATION: XR PORTABLE CHEST CLINICAL INFORMATION: Elevated troponin. Hypertension. COMPARISON: None TECHNIQUE: Portable frontal view of the chest was obtained. FINDINGS: Low lung volumes. No focal consolidation or mass. No pleural effusion or pneumothorax. Normal pulmonary vascularity. Calcified, tortuous aorta. Degenerative changes of the bilateral shoulders. IMPRESSION: No acute pulmonary disease.
--- NOTE | 2017-11-17 13:25 | History & Physical ---
Rick Germain 11/17/17 1324: General Information and HPI MD Statement: I have seen and personally examined SATINDER AMIN and documented this H&P. The patient is a 87 year old F who presented with a patient stated chief complaint of [leg pain]. Source of Information: patient, family Exam Limitations: no limitations History of Present Illness: 87-year-old female history of diabetes mellitus, osteoarthritis, gout, atrial fibrillation and hypertension, presented to the ED with right knee pain and hypertensive urgency. The pain began approximately 3 days ago at home when the patient found it painful to walk until she could no longer tolerate walking at all. In addition to the pain, the patient reports that she has experienced swelling around both knees, and noticeable warmth on the right knee, but denies fever or chills. Patient also takes Eliquis, started in June, and Cardizem for atrial fibrillation. Patient denies recent fall history, any sick contacts or recent travel history. Additionally, the patient denies chest pain, shortness of breath, palpitations, dizziness, abdominal pain, nausea or vomiting. Her previous history of gout is self diagnosed, as she does not often follow with her primary care physician, but the patient reports that she gets "gout flareups"annually, and usually controls them with Tylenol. She is a non-insulin dependent diabetic, a lifetime non-smoker, denies alcohol use, denies other drug use. Allergies/Medications Allergies: Coded Allergies: No Known Allergies (07/20/17) Home Med list Acetaminophen 500 MG TABLET 2 TAB PO PRN PAIN (Reported) Apixaban (Eliquis) 5 MG TABLET 5 MG PO BID A-fib . Benazepril HCl 10 MG TABLET 1 TAB PO BID BP (Reported) Diltiazem HCl (Cardizem Cd) 120 MG CAP.ER.24H 1 TAB PO DAILY A-fib Rate control . Labetalol HCl 100 MG TABLET 1 TAB PO BID HTN control . Linagliptin (Tradjenta) 5 MG TABLET 1 TAB PO DAILY DIABETES (Reported) Pravastatin Sodium 20 MG TABLET 1 TAB PO DAILY CHOLESTEROL (Reported) Compliance With Home Meds: POOR Past History Travel History Traveled to [place] past 21 day No Medical History Neurological: NONE EENT: NONE Cardiovascular: AFIB, hypertension Respiratory: NONE Gastrointestinal: NONE Hepatic: NONE Renal: NONE Musculoskeletal: ARTHITIS Psychiatric: NONE Endocrine: diabetes Blood Disorders: NONE Cancer(s): NONE DIRECTOR EHS/Reproductive: NONE History of MRSA: No History of VRE: No History of CDIFF: No Influenza Vaccine: 02/21/17 Surgical History Surgical History: non-contributory Past Family/Social History Psychosocial History Where do you live? Home Who Do You Live With? self Services at Home: None Review of Systems Review of Systems Constitutional: Denies: chills, fever, malaise. Cardiovascular: Denies: chest pain, palpitations, syncope. Respiratory: Denies: cough, short of breath, sputum production. GI: Denies: abdominal pain, bloating, nausea, vomiting. Musculoskeletal: Reports: gout, joint pain, joint swelling. Exam & Diagnostic Data Last 24 Hrs of Vital Signs/I&O Vital Signs Date Time Temp Pulse Resp B/P B/P Pulse O2 O2 Flow FiO2 Mean Ox Delivery Rate 11/17 1447 98.1 72 28 200/80 98 Room Air 11/17 1250 98.0 87 16 150/82 97 Room Air 11/17 1010 96 Room Air 11/17 0955 97.8 117 16 190/110 98 Room Air Physical Exam General Appearance Alert, Oriented X3, Cooperative, No Acute Distress HEENT Atraumatic, PERRLA, EOMI Neck Supple, No JVD Cardiovascular Normal S1, Normal S2, Irregular rhythm Lungs Clear to Auscultation, Normal Air Movement Abdomen Normal Bowel Sounds, Soft, No Tenderness Extremities No Clubbing, No Cyanosis, No Edema, Normal Pulses Vascular Normal Pulses, Pulses Symmetrical Last 24 Hrs of Labs/Guy: Laboratory Tests 11/17/17 1615: Fluid WBC Pending, Fld Total RBCs Counted Pending 11/17/17 1615: Ref Lab Test Result Pending, Fluid Glucose Pending, Fluid Total Protein Pending, Lyme Disease Antibody Cancelled 11/17/17 1600: Troponin I Pending 11/17/17 1005: Anion Gap 15, Estimated GFR > 60, BUN/Creatinine Ratio 21.3, Glucose 332 H, Uric Acid 5.9, Calcium 9.7, Total Bilirubin 0.8, AST 19, ALT 27, Alkaline Phosphatase 155 H, Troponin I 0.12 *H, Total Protein 7.8, Albumin 4.0, Globulin 3.8, Albumin/Globulin Ratio 1.1, CBC w Diff MAN DIFF ORDERED, RBC 4.77, MCV 85.7 , MCH 27.7, MCHC 32.3 L, RDW 12.9, MPV 8.7, Gran % 83.4 H, Lymphocytes % 8.9 L, Monocytes % 7.3, Eosinophils % 0.2, Basophils % 0.2, Absolute Granulocytes 13.1 H, Absolute Lymphocytes 1.4, Absolute Monocytes 1.1 H, Absolute Eosinophils 0, Absolute Basophils 0, Platelet Estimate ADEQUATE, Normocytic RBCs VERIFIED, Normochromic RBCs VERIFIED Microbiology 11/17 161 BODY FLUID: Body Fluid Culture - RECD 11/17 161 BODY FLUID: Gram Stain - RECD 11/17 161 BLOOD: Blood Culture - RECD 11/17 1600 BLOOD: Blood Culture - RECD Assessment/Plan Assessment: 87-year-old female history of diabetes mellitus, osteoarthritis, gout, atrial fibrillation on Eliquis and Cardizem, hypertension, presented with right knee pain and hypertensive urgency. Patient was found in the ED to have a blood pressure of 190/110, as well as a white count of 15.7 with left shifthowever the patient is afebrile without signs of systemic infection. Hypertension is possibly due to compliance with blood pressure regimen and/or severe pain. X-ray found joint effusion or fluid collection surrounding the joint. Orthopedic surgery was consulted, and performed right knee arthrocentesis that showed: very slightly blood-tinged overall yellow, thin straw-colored relatively normal-appearing synovial fluid without obvious purulence. Problems: 1. Gout exacerbation 2. Hypertensive urgency 3. Atrial fibrillation Plan: * Cardiology consultation placed * Follow-up joint fluid * Follow-up blood cultures * Start Eliquis 5 mg twice daily tomorrow after ruling out hemarthrosis * Start colchicine 1200 mcg * Tylenol 650 mg p.o. every 6 hours as needed for pain * Start insulin sliding scale * Start lisinopril 20 mg p.o. daily * Start labetalol 100 mg p.o. twice daily * Continue home dose Cardizem 120 mg p.o. daily * Admit patient to telemetry Full code Diabetic diet ALPS and Eliquis DVT prophylaxis CEC and BEP for tomorrow As Ranked By This Provider Problem List: 1. Gouty arthritis 2. Troponin level elevated 3. Hypertension 4. Rapid atrial fibrillation Core Measures/Misc (01/07) Acute Coronary Syndrome ACS Diagnosis: No Congestive Heart Failure Congestive Heart Failure Diagnosis No Cerebrovascular Accident CVA/TIA Diagnosis: No VTE (View Protocol) VTE Risk Factors Age>40 No Mechanical VTE Prophylaxis d/t N/A MechProphylax Ordered No VTE Pharm Prophylaxis d/t NA PharmProphylax ordered Sepsis (View protocol) Sepsis Present: No If YES complete Sepsis Event Note If YES complete Sepsis Event Note Abimael Hope 11/17/17 1424: Core Measures/Misc (01/07) Sepsis (View protocol) If YES complete Sepsis Event Note If YES complete Sepsis Event Note Resident Review Statement Resident Statement: examined this patient, discussed with consultant intern, agreed with consultant intern, discussed with family, reviewed EMR data (avail), discussed with nursing , discussed with case mgmt, reviewed images, amended to note Other Findings: This is a 87-year-old female with past medical history significant for atrial fibrillation on apixaban, Cardizem, hypertension, hyperlipidemia, diabetes, osteoarthritis, chronic gout presented to the hospital for evaluation of right knee and right foot pain. Patient was admitted to [facility] in June 2017 for new onset atrial fibrillation, found to have pulmonary hypertension, discharged on Eliquis and Cardizem. Patient reports that she has history of gout, experiences gouty arthritis almost every year, gets relief with the Tylenol. Patient reports ongoing right knee joint pain, right foot pain for last 3 days, she tried Tylenol without any benefit. She also reports the right knee swelling, pain, hot. Denies any fever , chills. Denies any recent falls, injuries or trauma. No prior knee injuries, joint replacement of prosthetic device placements. Given right knee and right foot pain she could not ambulate for last couple of days which made her to come to the emergency room for further evaluation. On further questioning she denies any chest pain, fever, chills, palpitations, short of breath, cough, nausea, vomiting, abdominal pain, change in bladder or bowel habits. No recent travel history or sick contact exposure. She denies smoking, alcohol abuse, illicit drug abuse. She does not follow any helmet hat puncher for gout. ------- Vitals afebrile, heart rate 87, respiratory rate 16, blood pressure 190/111, 97 on room air Exam HEENT within normal limit S1-S2 irregularly regular no murmur, bilateral lung sounds normal, abdomen soft nontender nondistended, lower extremities right medial sided knee swelling, no other bony abnormalities, right great toe bony erosions Labs WBC 15.7, hemoglobin 13, hematocrit 40, platelets 329 Sodium 140 potassium 3.4, creatinine 0.8, glucose 322 Troponin 0.12 EKG showed atrial fibrillation rate 90, PVCs knee x-ray No fracture or dislocation seen. There is ovoid suprapatellar soft tissue density which may represent a large joint effusion although bursitis or hematoma or other fluid collections could give this appearance as well. Foot xray No fracture or dislocation seen. Multifocal degenerative changes as described above. Well-corticated erosions with adjacent soft tissue densities involving the first and fifth metatarsal heads, suggestive of gout. ------ Acute gouty arthritis Patient presented with right foot and right knee pain associated with swelling. She is afebrile with leukocytosis 15,000 at the time of admission. She does not met sepsis criteria. However foot x-ray showed soft tissue erosions and densities involving first and fifth metatarsal tarsal head suggestive of gout. * Admitted to telemetry for elevated troponin * monitor vitals every shift * Monitor for fever * Trend leukocyte count * Follow-up blood cultures * Follow-up uric acid * Patient was given 1 dose of colchicine 1.2 mg. Colchicine has interactions with Cardizem. Based on her further clinical symptoms will continue colchicine * NSAIDS contraindicated given hematoma Right knee swelling Patient presented with right knee pain associated with swelling and warmthness. she is afebrile with leukocyte count 15,000 at the time of admission. Denies fever and chills. Knee x-ray showed large effusion possible bursitis or hematoma or other fluid collections. Possible differentials gouty arthritis versus bursitis involving medial patellar region versus hematoma from Eliquis, less likely septic joint given no fever no systemic signs of infection * Adequate pain management * Continue treatment for gouty arthritis * Monitor for fever, worsening leukocytosis * Follow-up blood cultures * Start antibiotics if blood cultures are positive * Will get Ortho consult to look for bursitis and hematoma/septic joint * Will touch base with arc cutter plasma arc regarding Eliquis Hypertensive urgency 190/111 at the time of admission, came down to 150/82 We will continue her home medications lisinopril 20 daily and labetalol 100 twice daily Gait instability PT consult Elevated troponin Patient was found to have elevated troponin 0.12 with no new EKG changes. EKG showed A. fib with rate 90, PVC, no acute ST-T wave changes. She has no chest pain, palpitations, short of breath. She is not diaphoretic. She is completely asymptomatic. * Cardiology consult * Serial troponin and EKG * Continuous telemetry monitoring Atrial fibrillation Continue apixaban 5 twice daily based on cardio recs Cardizem 120 daily extended release Hyperlipidemia continue Lipitor Diabetes mellitus Accu-Cheks and insulin sliding scale Hypokalemia potassium 3.4, repleted She is full code DVT prophylaxis apixaban Regular diet Renuka Ba 11/17/17 1532: Core Measures/Misc (01/07) Sepsis (View protocol) If YES complete Sepsis Event Note If YES complete Sepsis Event Note Attending MD Review Statement Attending Statement Attending MD Statement: examined this patient, discuss w/resident/PA/ICE SKATER, agreed w/resident/PA/ICE SKATER, discussed with family, reviewed EMR data (avail), discussed with nursing, discussed with case mgmt, reviewed images, amended to note Attending Assessment/Plan: 87 o/f with pmh of afib on anticoagulation comes with knee pain without fevers and systemic signs of sepsis and found to have accelerated hypertension and eletaed cardiac enzymes is placed here on telemetry. Xray knee suggestive of gout/pseudogout presentaiton or spontaneous hematoma on anticoagulation. Obtain cardiology and orthopedics consult. Serial cardiac enzymes likely type 2 AR and demand ischemia. Trial of NSAIDS for pain control and swelling. Resume home meds. Anticogulation as per cardiology. Monitor cbc. gi/dvt prophyalxis full code.
--- NOTE | 2017-11-17 17:18 | PN- Orthopedic ---
Surgical Brief Attending Note Brief Attending Note: I was contacted to evaluate this very pleasant 87-year-old female for a right knee joint aspiration. The patient has apparently been experiencing right knee pain and slowly progressive swelling in the right knee over the past 1 week. She denies any history of injury or change in activity pattern. She denies any associated fevers or chills. Her pain has been exacerbated with walking and to a lesser degree with right knee motion. She presented to the [facility] emergency room where she is actually being admitted for possible elevation in her troponin level. She was complaining of right knee pain and swelling and there did appear to be either a joint effusion or bursal irritation on the medical staff at the hospital evaluated her. The patient was also found to have an elevated white blood cell count of 15.7 prompting a call to orthopedics for a right knee joint aspiration. The patient is currently on anticoagulant medication. She has no other areas of known bleeding or bruising. She has not experienced any fevers or chills or night sweats or malaise. The patient does have a history of gout. She suspects that her gout has been more active over the past 1 week but this basically correlates with her complaints of right knee pain and swelling. On clinical examination the patient is a pleasant, cooperative, thin but overall healthy-appearing elderly black female looking her reported age lying comfortably on her hospital stretcher in no apparent distress. Vital signs are stable and she is afebrile. Examination of the right knee shows a moderate joint effusion appreciated visually as well as on patellar ballottement. I appreciate no ecchymosis or erythema or muscle atrophy or deformity otherwise. The skin appears to be intact and in good condition. There is generalized tenderness to palpation about the knee. No real tenderness on palpation over the prepatellar bursal region of the knee. There is perhaps very slight distention of the prepatellar bursa. There is more notable fluctuance and slightly more localizing discomfort on palpation about the knee joint lines including the patellofemoral articulation and the medial and lateral tibiofemoral joint lines. There was also some discomfort on palpation diffusely about the suprapatellar pouch. Range of motion of the knee shows full extension without pain even on resistance testing. Knee flexion limited to about 90 with a sense of tightness and general discomfort in the knee. No gross instability. Motor and sensory function are grossly intact distally. X-rays of the patient's right knee show relatively advanced osteoarthritic changes even on nonweightbearing films of the knee. The soft tissues are notable for distention of the suprapatellar pouch with a suspected joint effusion. No fractures, subluxations, or dislocations identified. The bone quality is reasonably good. Labs are significant for an elevated white blood cell count of 15.7. Assessment: Right knee pain and swelling with joint effusion and elevated white blood cell count without constitutional symptoms. Clinically I doubt a septic joint but this is not yet ruled out. I would suspect that given the patient's history of gout that there is a high likelihood that the joint effusion is related to a flare of gouty arthropathy of the knee. Another possibility would be a hemarthrosis given the patient's history of anticoagulant medication. After joint aspiration with return of relatively unremarkable synovial fluid I would place little concern for a septic joint/infectious process and I see no evidence of hemarthrosis. Therefore in all likelihood this is probably a flare of gouty arthropathy versus synovitis related to meniscal or articular cartilage degeneration. Plan: The right knee joint was aspirated and the synovial fluid retrieved with aspiration was sent to the lab for analysis including crystal analysis, Gram stain, culture and sensitivity, Lyme PCR, and cell count. Ice packs should be applied to the knee. She may weight-bear as tolerated and move the knee to tolerance as well. Please contact me if the synovial fluid aspirate analysis shows any evidence of infection and I would be happy to reevaluate the patient again. She otherwise does not require further orthopedic monitoring or supervision. Procedure: Using sterile technique, the patient's right knee joint was aspirated via a lateral approach to the suprapatellar pouch using an 18-gauge needle on a 30 cc syringe. Aspiration of the knee returned 20 cc of very slightly blood- tinged overall yellow, thin straw-colored relatively normal-appearing synovial fluid without obvious purulence. The patient tolerated the procedure well. The synovial fluid aspirated was placed into test tubes using sterile technique and sent to the lab per protocol for synovial fluid analysis.
[2017-11-17 19:44] VITALS: BP 146/74
[2017-11-17 22:29] VITALS: BP 140/70
[2017-11-18 06:56] VITALS: BP 98/64
[2017-11-18 08:50] LABS: ABSOLUTE BASOPHIL COUNT 0 /CUMM (0.0-0.2); ABSOLUTE EOSINOPHIL COUNT 0.1 /CUMM (0.0-0.7); ABSOLUTE GRANULOCYTE CT 10.5 /CUMM (1.4-6.5); ABSOLUTE LYMPH COUNT 1.7 /CUMM (1.2-3.4); ABSOLUTE MONOCYTE COUNT 1.2 /CUMM (0.10-0.60); BASOPHIL % 0.3 % (0.0-2.0); EOSINOPHIL % 0.7 % (0-5); GRANULOCYTE % 77.5 % (42.2-75.2); MEAN CORPUSCULAR HGB 28.3 PG (27.0-31.0); MEAN CORPUSCULAR HGB CONC 33.2 G/DL (33.0-37.0); MEAN CORPUSCULAR VOLUME 85.4 FL (81.0-99.0); MEAN PLATELET VOLUME 9.4 FL (7.4-10.4); PLATELET COUNT 282 /CUMM (130-400); RBC DISTRIBUTION WIDTH 12.6 % (11.5-14.5); RED BLOOD CELL CT 3.64 /CUMM (4.20-5.40); WHITE BLOOD CELL COUNT 13.5 /CUMM (4.8-10.8)
--- NOTE | 2017-11-18 09:01 | PN- Housestaff ---
Suha Pina 11/18/17 0901: Subjective Follow-up For: Acute gout exacerbation Atrial fibrillation Complaints: no complaints Subjective: Pt seen and examined lying in bed in NAD, no complaints, no acute events overnight Review of Systems Constitutional: Reports: see HPI. Objective Last 24 Hrs of Vital Signs/I&O Vital Signs Date Time Temp Pulse Resp B/P B/P Pulse O2 O2 Flow FiO2 Mean Ox Delivery Rate 11/19 1200 98.3 68 18 154/64 96 Room Air Room Air 11/19 1106 Room Air 11/19 0828 74 160/88 11/19 0828 74 160/88 11/19 0800 98.3 20 95 Room Air 11/19 0400 98.4 67 18 138/74 95 Room Air 11/19 0041 98.9 76 20 124/74 97 Room Air 11/18 2105 99.0 70 18 170/72 11/18 2044 99.2 71 18 172/74 93 11/18 1913 100.5 11/18 1630 100.1 85 18 122/80 97 Room Air 11/18 1410 98.7 75 18 116/70 97 Room Air Intake & Output 11/19 1600 11/19 0800 11/19 0000 Intake Total Output Total 150 300 150 Balance -150 -300 -150 Number 2 Bowel Movements Output, Urine 150 300 150 Patient 147 lb Weight Physical Exam General Appearance: Alert, Oriented X3, Cooperative, No Acute Distress Skin: No Rashes, No Breakdown, No Significant Lesion Skin Temp/Moisture Exam: Cool/Dry HEENT: Atraumatic, Mucous Membr. moist/pink Neck: Supple Cardiovascular: Regular Rate, Normal S1, Normal S2, No Murmurs Lungs: Clear to Auscultation, Normal Air Movement Abdomen: Normal Bowel Sounds, Soft, No Tenderness Neurological: Normal Speech Extremities: No Clubbing, No Cyanosis, No Edema Assessment/Plan Assessment: 87-year-old female history of diabetes mellitus, osteoarthritis, gout, atrial fibrillation on Eliquis and Cardizem, hypertension, presented with right knee pain and hypertensive urgency. Patient was found in the ED to have a blood pressure of 190/110, as well as a white count of 15.7 with left shifthowever the patient is afebrile without signs of systemic infection. Problems: 1. Gout exacerbation 2. Hypertensive urgency 3. Atrial fibrillation 4. elevated troponins 5. DM Plan: * Aspirate from knee sent for synovial fluid analysis with no ghassan blood on aspirate * Follow-up blood cultures * Start Eliquis 5 mg twice daily. Cont. Tylenol 650 mg p.o. every 6 hours as needed for pain, lisinopril 20 mg p.o. daily, labetalol 100 mg p.o. twice daily, Cardizem 120 mg p.o. daily * Louis. insulin sliding scale & Accu cheks for bld glc control Code Status: Full code Diet: Diabetic diet DVT prophylaxis: ALPS and Eliquis Problem List: 1. Gait instability 2. Gouty arthritis 3. Troponin level elevated 4. Hypertension 5. Rapid atrial fibrillation Pain Ratin Pain Location: none Pain Goal: Remain pain free Pain Plan: n/a Tomorrow's Labs & Rationales: cbc, bep Renuka Ba 11/18/17 1219: Attending MD Review Statement Attending Statement Attending MD Statement: examined this patient, discuss w/resident/PA/YOUTUBER, agreed w/resident/PA/YOUTUBER, discussed with family, reviewed EMR data (avail), discussed with nursing, discussed with case mgmt, reviewed images, amended to note Attending Assessment/Plan: 87 o/f with pmh of afib on anticoagulation comes with knee pain without fevers and systemic signs of sepsis and found to have accelerated hypertension and elevated cardiac enzymes is placed here on telemetry. Aspirate from knee sent for synovial fluid analysis with no ghassan blood on aspirate. Xray knee suggestive of gout/pseudogout presentaiton . Appreciated cardiology and orthopedics. Serial cardiac enzymes likely type 2 MT and demand ischemia. Trial of NSAIDS/colchicine for pain control and swelling. c/w home meds. Anticogulation as per cardiology. Obtain PT consult. gi/dvt prophyalxis full code.
[2017-11-18 09:14] LABS: HEMATOCRIT 31.1 % (37-47)
--- NOTE | 2017-11-18 10:40 | Cons- Cardiology ---
See Addendum General Information and HPI Consulting Request Date of Consult: 11/18/17 Requested By: Renuka Ba MD Primary pipe crew foreman: Dr. Ghotra Reason for Consult: Hypertensive urgency/Elevated Troponin Source of Information: patient, old records Exam Limitations: no limitations History of Present Illness: This is a pleasant 87-year-old female history of diabetes mellitus, osteoarthritis, gout, atrial fibrillation on eliquis and hypertension, presented to [facility] yesterday complaining of acute gout exacerbation to the right knee found to be in hypertensive urgency, with subsequent elevated troponin.. The patient states she has been in her normal state of health up until the past 1 week at which time she has been having progressively worsening bilateral right greater than left knee pain. She denies any recent trauma or injury. No fever no chills. In the ED patient was noted to be hypertensive 190 /110 and she denies recent changes in her medication. She states she has been compliant with all of her medications. There is been no chest pain shortness of breath dizziness lightheadedness, headache, blurry vision or syncope. She was given a dose of her labetalol with improvement in her blood pressure. Orthopedist consult was obtained and an arthrocentesis of the right knee was performed. The patient was subsequently admitted after she was found to have an elevated troponin of 0.12. Her EKG revealed a sinus rhythm with no acute changes. Her troponin has subsequently trended down. Currently Ms. Reed is resting in no acute distress. She reports significant improvement in her knee pain. She denies chest pain shortness of breath headache blurry vision dizziness lightheadedness at this time Allergies/Medications Allergies: Coded Allergies: No Known Allergies (07/20/17) Home Med List: Acetaminophen 500 MG TABLET 2 TAB PO PRN PAIN (Reported) Apixaban (Eliquis) 5 MG TABLET 5 MG PO BID A-fib . Benazepril HCl 10 MG TABLET 1 TAB PO BID BP (Reported) Diltiazem HCl (Cardizem Cd) 120 MG CAP.ER.24H 1 TAB PO DAILY A-fib Rate control . Labetalol HCl 100 MG TABLET 1 TAB PO BID HTN control . Linagliptin (Tradjenta) 5 MG TABLET 1 TAB PO DAILY DIABETES (Reported) Pravastatin Sodium 20 MG TABLET 1 TAB PO DAILY CHOLESTEROL (Reported) Current Medications: Current Medications Sig/Concepción Start time Last Medication Dose Route Stop Time Status Admin Acetaminophen 0 .STK-MED ONE 11/17 1643 DC PO Acetaminophen 650 MG Q6P PRN 11/17 1345 AC 11/18 PO 0519 Acetaminophen 0 .STK-MED ONE 11/17 1121 DC IV Acetaminophen 1,000 MG ONCE ONE 11/17 1115 DC 11/17 N/A 1 UNIT IV 11/17 1129 1123 Apixaban 5 MG BID 11/18 1000 AC 11/18 PO 0846 Apixaban 5 MG BID 11/17 2100 DC PO Colchicine 1,200 MCG ONCE ONE 11/17 1615 DC 11/17 PO 11/17 1616 1642 Diltiazem HCl 120 MG DAILY 11/18 0900 AC 11/18 PO 0850 Indomethacin Sodium 50 MG TID 11/17 1446 DC PO Insulin Aspart 0 TIDAC 11/17 1345 AC 11/18 SC 0851 Insulin Human Regular 4 UNITS ONCE ONE 11/17 2245 DC 11/17 SC 11/17 2246 2242 Labetalol HCl 100 MG BID 11/17 1407 AC 11/18 PO 0850 Lactobacillus 1 CAP BID 11/17 2100 CAN Acidophilus PO Lisinopril 20 MG DAILY 11/18 0900 AC 11/18 PO 0850 Potassium Chloride 0 .STK-MED ONE 11/17 1505 DC PO Potassium Chloride 40 MEQ ONCE ONE 11/17 1345 DC 11/17 PO 11/17 1346 1505 Pravastatin Sodium 20 MG DAILY@1700 11/17 1700 AC 11/17 PO 1642 Review of Systems Review of Systems: Review of systems: See HPI, All other systems negative. Constitutional, no chills no fever, no malaise HEENT: no sore throat no congestion Cardiovascular: No chest pain , no palpitation Skin: no rashes, no change in skin Respiratory: No dyspnea no cough no sputum GI: No nausea no vomiting, no diarrhea : No dysuria Muscle skeletal: Positive joint pain, no back pain, no neck pain, Neurologic: , no headache Psych: No stress Heme/endocrine: No bruising Immunology: No lymphadenopathy Past History Travel History Traveled to [place] past 21 day No Medical History Blood Transfusion Hx: No Neurological: NONE EENT: NONE Cardiovascular: AFIB, hypertension Respiratory: NONE Gastrointestinal: NONE Hepatic: NONE Renal: NONE Musculoskeletal: ARTHITIS Psychiatric: NONE Endocrine: diabetes Blood Disorders: NONE Cancer(s): NONE NURSE EDUCATOR/Reproductive: NONE Surgical History Surgical History: non-contributory Psychosocial History Where Do You Live? Home Who Do You Live With? self Services at Home: None Smoking Status: Never Smoked Exam & Diagnostic Data Vital Signs and I&O Vital Signs Date Time Temp Pulse Resp B/P B/P Pulse O2 O2 Flow FiO2 Mean Ox Delivery Rate 11/18 0850 78 156/68 11/18 0850 78 156/68 11/18 0656 99.0 76 18 98/64 97 Room Air 11/18 0000 Room Air 11/17 2229 98.2 66 18 140/70 95 Room Air 11/17 2008 68 146/74 11/17 1944 99.0 18 18 146/74 95 Room Air 11/17 1854 98.0 78 18 122/61 97 Room Air 11/17 1719 98.0 80 18 110/55 97 Room Air 11/17 1642 98.1 72 28 200/80 11/17 1447 98.1 72 28 200/80 98 Room Air 11/17 1250 98.0 87 16 150/82 97 Room Air Intake & Output 11/18 1600 11/18 0800 11/18 0000 11/17 1600 11/17 0800 11/17 0000 Intake Total 240 100 Output Total 50 250 Balance 190 -150 Intake, Oral 240 100 Number 1 Bowel Movements Output, Urine 50 250 Patient 147 lb Weight Physical Exam: Well-developed well-nourished person in no acute distress HEENT: HEAD is atraumatic Neck: Supple, normal range of motion Back: Full range of motion Cardiovascular: Regular rate and rhythms no murmurs rubs or gallops, normal JVP Respiratory: No respiratory distress. Patient speaking in full complete sentences. Breath sounds clear to auscultation bilaterally: NO W/R/R Abdomen: Soft, nontender Extremity: No overlying erythema noted to the right knee, there is positive swelling to the right anterior knee, no edema, normal and equal pulses bilaterally Neuro: Alert oriented x3, motor sensory normal Skin: No appreciable rash on exposed skin, skin is warm and dry. Psych: Mood and affect is normal, memory and judgment is normal. Diagnostic Data EKG Results EKG: Sinus rhythm 90, no acute ischemic changes. Telemetry personally reviewed by me sinus 70s-90s. Personally reviewed by me CXR Results No acute pulmonary disease. Other Results Lexiscan July 2017. No evidence of ischemia. Left ventricle systolic function is normal with no wall motion abnormalities Doppler LE: IMPRESSION: No evidence of deep venous thrombosis involving right lower extremity. No Nation's cyst seen. Assessment/Plan Assessment/Plan 87-year-old female history of diabetes mellitus, osteoarthritis, gout, atrial fibrillation on eliquis and hypertension, presented to [facility] yesterday complaining of acute gout exacerbation to the right knee found to be in hypertensive urgency, with subsequent elevated troponin. Impression: Elevated troponin Hypertensive urgency History of AThomas hargrove on Eliquis Acute gout exacerbation Recommendations: Blood pressure now improved would continue on her home SP-i, beta-melonie. --Would continue home diltiazem. The patient's elevated troponin is likely secondary to demand ischemia in setting of hypertensive urgency. She is without chest pain, EKG shows no acute ischemic changes. It is subsequently trended down. It is recommended that we avoid NSAIDs in this patient with high history of hypertension. Would continue with Tylenol as needed pain. -Check vitals every 4 hours -D/C Tele -The patient should follow up with our office in 1 week. -Cardiology to sign off case for now, will follow prn The plan was discussed with Dr. Schwarz. Addendum to follow. We will sign off for now. Thank you for the opportunity to assist in the patient's care. These do not hesitate to call with any questions. Mitchell Wallace PA-C [facility] Cardiology [address], [address] [place] [address] Consult Acknowledgment - Thank you for your consult request.
[2017-11-18 14:10] VITALS: BP 116/70
--- NOTE | 2017-11-18 15:17 | Event Note ---
Event Note Event Note: Situation:I was called by the on-call case management assistant from the ED to place an Admission order for the patient. The patient was admitted yesterday to Tele floor, but orders werent in?? Background:87 o/f with pmh of afib on anticoagulation comes with knee pain without fevers and systemic signs of sepsis and found to have accelerated hypertension and elevated cardiac enzymes is placed here on telemetry. Aspirate from knee sent for synovial fluid analysis with no ghassan blood on aspirate. Xray knee suggestive of gout/pseudogout presentaiton. Cardiology and orthopedics are on board. Serial cardiac enzymes show likely type 2 NJ and demand ischemia. Acc to PT eval, pt might need STR upon d/c. Assessment& Recommendation: :Agreed with the recommendation to admit the pt to the floor. I placed the admission orders.
[2017-11-18 16:30] VITALS: BP 122/80
[2017-11-18 20:44] VITALS: BP 172/74
[2017-11-19 00:41] VITALS: BP 124/74
[2017-11-19 04:00] VITALS: BP 138/74
--- NOTE | 2017-11-19 07:05 | PN- Housestaff ---
Rick Germain 11/19/17 0705: Subjective Follow-up For: Acute gout exacerbation Atrial fibrillation Tele-Events Since Last Visit: Patient is off telemetry Subjective: Patient seen resting comfortably in the bed. In no acute distress. She currently complains of pain in her knees, left greater than right, as well as swelling. The right knee was tapped and drained when she came into the emergency department. She is also having pain in her lower left extremity down to her foot, that feels like gout. Patient denies chest pain, shortness of breath, palpitations, or dizziness. Review of Systems Constitutional: Denies: diaphoresis, fever. Objective Last 24 Hrs of Vital Signs/I&O Vital Signs Date Time Temp Pulse Resp B/P B/P Pulse O2 O2 Flow FiO2 Mean Ox Delivery Rate 11/19 0400 98.4 67 18 138/74 95 Room Air 11/19 0041 98.9 76 20 124/74 97 Room Air 11/18 2105 99.0 70 18 170/72 11/18 2044 99.2 71 18 172/74 93 11/18 1913 100.5 11/18 1630 100.1 85 18 122/80 97 Room Air 11/18 1410 98.7 75 18 116/70 97 Room Air 11/18 0850 78 156/68 11/18 0850 78 156/68 Intake & Output 11/19 0800 11/19 0000 11/18 1600 Intake Total 703 Output Total 150 300 Balance -150 403 Intake, IV 3 Intake, Oral 700 Number 2 4 Bowel Movements Output, Urine 150 300 Patient 66.678 kg Weight Physical Exam General Appearance: Alert, Oriented X3, Cooperative, No Acute Distress HEENT: Atraumatic, PERRLA, EOMI Cardiovascular: Regular Rate, Normal S1, Normal S2, No Murmurs Lungs: Clear to Auscultation, Normal Air Movement Abdomen: Normal Bowel Sounds, Soft, No Tenderness Neurological: Normal Speech, Strength at 5/5 X4 Ext Extremities: No Clubbing, No Cyanosis, Normal Pulses Vascular: Normal Pulses, Pulses Symmetrical Current Medications: Current Medications Sig/Concepción Start time Last Medication Dose Route Stop Time Status Admin Acetaminophen 650 MG Q6 PRN 11/18 1830 AC 11/18 PO 1913 Acetaminophen 650 MG Q6P PRN 11/17 1345 DC 11/18 PO 0519 Apixaban 5 MG BID 11/18 1000 AC 11/18 PO 2102 Diltiazem HCl 120 MG DAILY 11/18 0900 AC 11/18 PO 0850 Insulin Aspart 0 TIDAC 11/17 1345 AC 11/18 SC 1809 Ketorolac 15 MG .STK-MED ONE 11/18 1143 DC Tromethamine IM 11/18 1144 Labetalol HCl 100 MG BID 11/17 1407 AC 11/18 PO 2105 Lisinopril 20 MG DAILY 11/18 0900 AC 11/18 PO 0850 Pravastatin Sodium 20 MG DAILY@1700 11/17 1700 AC 11/18 PO 1809 Last 24 Hrs of Lab/Guy Results Last 24 Hrs of Labs/Mics: Microbiology 11/18 1905 BLOOD: Blood Culture - RECD 11/18 1850 BLOOD: Blood Culture - RECD Assessment/Plan Assessment: 87-year-old female history of diabetes mellitus, osteoarthritis, gout, atrial fibrillation on Eliquis and Cardizem, hypertension, presented with right knee pain and hypertensive urgency. Hgb A1c found to be 7.2, was 11.4 in June of this year. Blood pressure this morning range from 138/74 to 160/80, may consider increasing lisinopril to 40 mg. Patient work with physical therapy, who recommended STR, case management aware and looking for bed. Patient complaining of gout-like pain in the left lower extremity, Tylenol for management and continue on colchicine. Problems: 1. Gout exacerbation 2. Hypertensive urgency 3. Atrial fibrillation Plan: * Preliminary blood cultures negative, follow-up * Preliminary synovial fluid culture negative, with many WBCs * Continue Eliquis * Continue colchicine * Tylenol IV 400 mL/h every 6 hours as needed hours as needed for pain * Endocrinology consult as outpatient for diabetes * Continue lisinopril 20 mg p.o. daily * Continue labetalol 100 mg p.o. twice daily * Continue home dose Cardizem 120 mg p.o. daily * Telemetry discontinued per cardiology * PT recommended STR for discharge Problem List: 1. Gait instability 2. Gouty arthritis 3. Troponin level elevated 4. Hypertension 5. Uncontrolled hypertension 6. Rapid atrial fibrillation Pain Ratin Pain Location: Left lower extremity Pain Goal: Pain 4 or less Pain Plan: Tylenol IV Tomorrow's Labs & Rationales: wade Barrientos MD,Carlos 11/19/17 1152: Attending MD Review Statement Attending Statement Attending MD Statement: examined this patient, discuss w/resident/PA/ROUTER TENDER, agreed w/resident/PA/ROUTER TENDER, reviewed EMR data (avail), discussed with nursing, discussed with case mgmt, amended to note Attending Assessment/Plan: Patient seen and examined. No issues overnight. No events were reported by nursing staff. She denies chest pain or shortness of breath. Denies palpitations. She reports that her right knee pain has improved but is complaining of left ankle swelling. On examination right knee is mildly swollen. Nontender with normal range of motion. The left ankle is swollen and tender. No erythema. No significant warmth. Blood pressure is improved compared to presentation. Blood pressure is currently 154/64 Problems: 1. Hypertensive urgency 2. Abnormal troponins 3. Gout 4. Pulmonary hypertension 5. Atrial fibrillation on anticoagulation with Eliquis. Plan: -Blood pressure is better controlled on her home medication regimen. Her accelerated blood pressure on admission was likely secondary to pain at that time. We will continue her home regimen for now. -Cardiology evaluation appreciated. Elevated troponins is not been attributed by the cardiology service so acute coronary syndrome or myocardial infarction. Given her risk factors of hypertension diabetes and dyslipidemia she will benefit from follow-up with cardiology service as outpatient for further ischemic workup as indicated given her advanced age. -She reports that her right knee pain has improved significantly following arthrocentesis. She complains of left ankle swelling and pain today. Likely still related to her gout. Colchicine for her gout flareup. Tylenol as needed for pain. -She is rate controlled. She is on labetalol. Continue anticoagulant therapy. -She is medically stable to be discharged. Physical therapy service is recommending short-term rehabilitation. She may be discharged once a bed becomes available. -On an echocardiogram she is noted to have significant pulmonary hypertension with pressures of 76 mmHg. Recommend outpatient follow-up with the cardiology service for further workup as indicated.
[2017-11-19 08:06] LABS: ABSOLUTE BASOPHIL COUNT 0 /CUMM (0.0-0.2); ABSOLUTE EOSINOPHIL COUNT 0.2 /CUMM (0.0-0.7); ABSOLUTE GRANULOCYTE CT 7.8 /CUMM (1.4-6.5); ABSOLUTE LYMPH COUNT 1.8 /CUMM (1.2-3.4); ABSOLUTE MONOCYTE COUNT 0.8 /CUMM (0.10-0.60); BASOPHIL % 0.3 % (0.0-2.0); EOSINOPHIL % 2.3 % (0-5); GRANULOCYTE % 73.3 % (42.2-75.2); HEMATOCRIT 31.9 % (37-47); MEAN CORPUSCULAR HGB 28.2 PG (27.0-31.0); MEAN CORPUSCULAR HGB CONC 32.7 G/DL (33.0-37.0); MEAN CORPUSCULAR VOLUME 86.2 FL (81.0-99.0); MEAN PLATELET VOLUME 9.1 FL (7.4-10.4); PLATELET COUNT 296 /CUMM (130-400); RBC DISTRIBUTION WIDTH 12.9 % (11.5-14.5); WHITE BLOOD CELL COUNT 10.6 /CUMM (4.8-10.8)
--- NOTE | 2017-11-19 11:21 | Discharge Summary ---
Visit Information Visit Dates Admission Date: 11/17/17 Discharge Date: 11/19/17 Hospital Course Course Attending Physician: Carlos Barrientos MD Primary Care Physician: Colton Roy DO Hospital Course: 87-year-old female history of diabetes mellitus, osteoarthritis, gout, atrial fibrillation and hypertension, presented to the ED with right knee pain and hypertensive urgency. The pain began approximately 3 days ago at home when the patient found it painful to walk until she could no longer tolerate walking at all. In addition to the pain, the patient reports that she has experienced swelling around both knees, and noticeable warmth on the right knee, but denies fever or chills. Patient also takes Eliquis, started in June, and Cardizem for atrial fibrillation. Patient denies recent fall history, any sick contacts or recent travel history. Additionally, the patient denies chest pain, shortness of breath, palpitations, dizziness, abdominal pain, nausea or vomiting.Her previous history of gout is self diagnosed, as she does not often follow with her primary care physician, but the patient reports that she gets "gout flareups "annually, and usually controls them with Tylenol. She is a non-insulin dependent diabetic, a lifetime non-smoker, denies alcohol use, denies other drug use. Hospital course Acute gout exacerbation right knee status post arthrocentesis Hypertensive urgency-resolved Elevated troponin-type II HI Patient presented with right knee pain and x-ray evidence of gouty arthritis with effusion. Orthopedic was on board who did an arthrocentesis which showed inflammatory changes. Her Eliquis which was stopped in view of the procedures and was restarted.Also the patient was started on colchicine 1200 mcg. Upon admission patient also had elevated blood pressure of systolic 190s. She was started on lisinopril 20, labetalol 100 twice daily and continued the home dose 120 Cardizem. Patient is advised to follow-up with Ortho and primary care physician within 1-2 weeks of discharge. Patient had an elevated troponin which was probably type II demand ischemia. Patient will follow with cardiology as outpatient. Allergies: Coded Allergies: No Known Allergies (07/20/17) Pertinent Lab Results: Right knee x-ray There is ovoid suprapatellar soft tissue density which may represent a large joint effusion although bursitis or hematoma or other fluid collections could give this appearance as well. Medial and lateral compartment degenerative arthrosis with chondrocalcinosis and intra-articular bodies. Foot x-ray No fracture or dislocation seen. Multifocal degenerative changes as described above. Well-corticated erosions with adjacent soft tissue densities involving the first and fifth metatarsal heads, suggestive of gout. Chest x-ray No acute pulmonary disease. Venous Doppler No evidence of deep venous thrombosis involving right lower extremity. No Nation's cyst seen. Disposition Summary Disposition Principal Diagnosis: Gout flareup. Hypertensive urgency Elevated troponins Additional Diagnosis: Atrial fibrillation. Pulmonary hypertension. Discharge Disposition: SNF Discharge Instructions General Discharge Information Code Status: Full Code Patient's Diet: Diabetic diet Patient's Activity: As tolerated Follow-Up Instructions/Appts: Follow-up with primary care physician/orthopedic/cardiology within 1-2 weeks of discharge Medications at Discharge Discharge Medications: Continue taking these medications: Pravastatin Sodium (Pravastatin Sodium) 20 MG TABLET 1 Tablet ORAL DAILY Comments: Last Taken: 11/18/17 Time: 6:00 PM Linagliptin (Tradjenta) 5 MG TABLET 1 Tablet ORAL DAILY Comments: NOT GIVEN IN HOSPITAL INSULIN USED TO CONTROL BLOOD SUGARS Apixaban (Eliquis) 5 MG TABLET 5 Milligram ORAL TWICE DAILY Qty = 60 Instructions: . Comments: Last Taken: 11/19/17 Time: 8:30 AM Labetalol HCl (Labetalol HCl) 100 MG TABLET 1 Tablet ORAL TWICE DAILY Qty = 60 Instructions: . Comments: Last Taken: 11/19/17 Time: 8:30 AM Diltiazem HCl (Cardizem Cd) 120 MG CAP.ER.24H 1 Tablet ORAL DAILY Qty = 30 Instructions: . Comments: Last Taken: 11/19/17 Time: 8:30 AM Benazepril HCl (Benazepril HCl) 10 MG TABLET 1 Tablet ORAL TWICE DAILY Comments: Last Taken: 11/19/17 Time: 8:30 AM LISINOPRIL GIVEN SUBSTITUTE Acetaminophen (Acetaminophen) 500 MG TABLET 2 Tablet ORAL as needed for PAIN Comments: Last Taken: 11/19/17 Time: 10:30 AM IV DOSE GIVEN Start taking the following new medications: Colchicine (Colcrys) 0.6 MG TABLET 1 Tablet ORAL DAILY Qty = 7 No Refills Comments: NOT GIVEN Copies To: Reg RIVERA,Daryl Crook; Colton Roy DO; Marylin RIVERA,Margarito Powers MD Review Statement Documenting Attending: Carlos Barrientos MD Other Findings: Medically stable to be discharged.
--- NOTE | 2017-11-19 11:37 | Patient Discharge Instructions ---
Discharge Instructions General Discharge Information You were seen/treated for: ACUTE GOUT EXACERBATION HYPERTENSIVE URGENCY ATRIAL FIBRILLATION Special Instructions: PLEASE FOLLOW UP WITH YOUR PRIMARY CARE DOCTOR, RAILROAD SIGNAL OPERATOR AND SHRIMP PEELING MACHINE TENDER ABOUT YOUR RECENT HOSPITALIZATION Diet Continue normal diet: Yes Recommended Diet: Diabetic Activity Full Activity/No Limits: No Activity Self Limited: Yes Acute Coronary Syndrome Inclusion Criteria At DC or during hospital stay patient has or had the following: ACS DIAGNOSIS No Discharge Core Measures Meds if any: Prescribed or Continued at Discharge Meds if any: NOT Prescribed or Continued at Discharge Congestive Heart Failure Inclusion Criteria At DC or during hospital stay patient has or had the following: CHF DIAGNOSIS No Discharge Core Measures Meds if any: Prescribed or Continued at Discharge Meds if any: NOT Prescribed or Continued at Discharge Cerebrovascular accident Inclusion Criteria At DC or during hospital stay patient has or had the following: CVA/TIA Diagnosis No Discharge Core Measures Meds if any: Prescribed or Continued at Discharge Meds if any: NOT Prescribed or Continued at Discharge Venous thromboembolism Inclusion Criteria VTE Diagnosis No VTE Type NONE VTE Confirmed by (Test) NONE Discharge Core Measures - Per Current guidelines, there needs to be overlap - treatment for the first 5 days of Warfarin therapy. - If discharged on Warfarin prior to 5 days of - overlap therapy, the patient will need to be - assessed for post discharge needs including - *Post discharge parental anticoagulation - *Warfarin and/or parental anticoagulation education - *Follow up date to check INR post discharge At least 5 days overlap therapy as Inpatient No Meds if any: Prescribed or Continued at Discharge Note: Overlap Therapy is Warfarin and Anticoagulant Meds if any: NOT Prescribed or Continued at Discharge
[2017-11-19 12:00] VITALS: BP 154/64
[2017-11-19] MEDS ORDERED: COLCRYS0.6 M1 PO ×2 (14:19→14:23)
[2017-11-19 14:32] VITALS: BP 154/64
== END 2017-11-19 15:10 | DRG 565 ==
LOC: ERH 09:49 → 1NO 13:18 → ERHI 13:18 → ENRESERV 16:37 → ENTRNSPT 19:03 → EDTRNSPTSTS 19:19 → 1NO 19:29 → CMPTRNSPT 19:37 → 1NO 11-18 11:31 → ENPENDDIS 11-19 12:45 → ENTRNSPT 11-19 14:54 → EDTRNSPTSTS 11-19 15:01 → 1NO 11-19 15:10 → CMPTRNSPT 11-19 15:11
PROVIDERS: Physician Assistant Medical; Student in an Organized Health Care Education/Training Program
PROC: 0S9C3ZX Drainage of Right Knee Joint, Percutaneous Approach, Diagnostic (ICD-10-PCS; principal; 2017-11-17)
DX: M25.461 Effusion, right knee (principal); I24.8 Other forms of acute ischemic heart disease; M10.9 Gout, unspecified; I10 Essential (primary) hypertension; I16.0 Hypertensive urgency; I48.91 Unspecified atrial fibrillation; Z79.01 Long term (current) use of anticoagulants; E78.5 Hyperlipidemia, unspecified; E11.9 Type 2 diabetes mellitus without complications; Z79.84 Long term (current) use of oral hypoglycemic drugs; R26.2 Difficulty in walking, not elsewhere classified; E87.6 Hypokalemia; R26.89 Other abnormalities of gait and mobility; M19.90 Unspecified osteoarthritis, unspecified site; I27.20 Pulmonary hypertension, unspecified; M79.661 Pain in right lower leg; R79.89 Other specified abnormal findings of blood chemistry
CPT/HCPCS: 1NSP; 86618; 87075; 36415; 36592; 71045; 73562-RT; 73630-RT; 82436; 87040; 93005; 93010; 97110-GO; 97116-GO; 97161-GP; 97530-GO; J0131; J1815